=== PATIENT | female | born 1940 | race Caucasian/White ===

== ENCOUNTER 2019-05-02 04:11 | Observation (INO) ==
[2019-05-02 04:46] LABS: Basophils % 0.3 %; Eosinophils # 0.1 K/mcL (0.0-0.6); Eosinophils % 1.6 %; Hematocrit 41.8 % (35.3-44.9); Hemoglobin 13.4 g/dL (11.5-15.4); Immature Granulocytes % 0.3 % (0-4); Lymphocytes # 1.5 K/mcL (0.6-4.6); Lymphocytes % 19.3 %; Mean Corpuscular HGB Conc 32.1 g/dL (31.6-35.5); Mean Corpuscular Hemoglobin 29.1 pg (28.0-33.3); Mean Corpuscular Volume 90.9 fL (83.0-100.0); Mean Platelet Volume 10.2 fL (9.4-12.4); Monocytes # 0.5 K/mcL (0.0-1.3); Monocytes % 6.9 %; Neutrophils # 5.4 K/mcL (1.6-8.9); Platelet Count 170 K/mcL (140-400); Red Cell Distribution Width 13.8 % (11.5-14.5); Segmented Neutrophils % 71.6 %; White Blood Count 7.6 K/mcL (4.3-11.1)
[2019-05-02 05:03] LABS: Alanine Aminotransferase 17 Units/L (7-52); Albumin/Globulin Ratio 1.3 (1.1-2.2); Alkaline Phosphatase 69 Units/L (34-104); Aspartate Amino Transferase 22 Units/L (13-39); BUN/Creatinine Ratio 29 (6-26); Bilirubin,Direct 0.1 mg/dL (0.0-0.2); Bilirubin,Indirect 0.4 mg/dL (0.0-1.2); Bilirubin,Total 0.5 mg/dL (0.3-1.0); Blood Urea Nitrogen 25 mg/dL (8-23); Carbon Dioxide 27 mEq/L (23-29); Chloride 99 mEq/L (98-107); Glucose 164 mg/dL (70-105); Lipase 43 Units/L (11-82); Osmolality,Calculated 308 (280-300); Potassium 4.2 mEq/L (3.5-5.1); Sodium 145 mEq/L (136-145); eGFR For African Americans > 60 (> 60); eGFR For Non-African Americans > 60 (> 60)
--- NOTE | 2019-05-02 05:07 | Emergency Department Note ---
Disposition Clinical Impression: Small bowel obstruction Abdominal pain Qualifiers: Abdominal location: generalized Qualified Code(s): R10.84 - Generalized abdominal pain Disposition: Admitted As Inpatient Condition: Good Referrals: Jason Good MD [Primary Care Provider] - Forms: ED Satisfaction Letter, Work/School Release Time of Disposition: 06:00 Abdominal Pain HPI - General Chief Complaint: ED Abdominal Pain Stated Complaint: abd pain Time Seen by Provider: 05/02/19 04:22 Source: patient, EMS Nursing Notes Reviewed: Yes Vital Signs Reviewed: Yes - History of Present Illness Pt Subjective Complaint: abdominal pain Onset (ago): Just [employer]UDIT[employer] SUPERVIS[employer] Consistency: constant Location: diffuse Pain Scale: 0 Quality: fullness Radiation: none Migration to: no migration Improves with: rest Worsens with: nothing Associated symptoms: Reports: nausea. Denies: vomiting, fever, chills, dysuria Treatments prior to arrival: other (gasX) - Related Data Home Medications Medication Instructions Recorded Confirmed Calcium Citrate 1 tab PO DAILY 05/31/15 12/02/18 Centrum Silver Tablet 1 tab PO DAILY 05/31/15 12/02/18 Chromium Picolinate 1 tab PO DAILY 05/31/15 12/02/18 Fish Oil 500 mg Softgel 1,000 mg PO DAILY 05/31/15 12/02/18 Glucosamine Chondroitin Cap 1 tab PO DAILY 05/31/15 12/02/18 Magnesium 1 tab PO DAILY 05/31/15 12/02/18 Omeprazole 40 mg PO DAILY 05/31/15 12/02/18 Quinapril HCl 20 mg PO DAILY 05/31/15 12/02/18 Triamterene/HCTZ 37.5/25mg 1 tab PO DAILY 05/31/15 12/02/18 Vitamin C 1 tab PO DAILY 05/31/15 12/02/18 Vitamin D3 1 tab PO DAILY 05/31/15 12/02/18 Vitamin E 1 cap PO DAILY 05/31/15 12/02/18 Mometasone Furoate [Elocon] 15 gm TP PRN PRN 12/06/15 12/02/18 Aspirin [Lo-Dose Aspirin EC] 1 tab PO QDPC 12/04/16 12/02/18 Previous Rx's Medication Instructions Recorded Magnesium Oxide [Magnesium] 400 mg PO DAILY #30 tablet 05/31/15 Clotrimazole/Betamethasone Dip 30 gm TP BID #1 tub 12/04/17 [Lotrisone Cream] Ondansetron HCl [Zofran] 4 mg PO Q8HR PRN #12 tab 03/04/19 Allergies Allergy/AdvReac Type Severity Reaction Status Date / Time methocarbamol Allergy Rash Verified 12/02/18 10:36 [From Robaxisal] Amoxicillin AdvReac Rash Verified 12/02/18 10:36 aspirin [From Robaxisal] AdvReac Rash Verified 12/02/18 10:36 All systems ED: reviewed and negative except as stated. Review of Systems: As Per HPI Constitutional: Denies: fever Eyes: Denies: eye pain ENT ED: Denies: throat pain Cardiovascular: Denies: chest pain Respiratory: Denies: dyspnea Gastrointestinal: Reports: as per HPI. Denies: diarrhea Genitourinary: Denies: dysuria Musculoskeletal: Denies: back pain Integumentary: Denies: rash Neurological: Denies: weakness Endocrine: Denies: fatigue Hematological/Lymphatic: Denies: lymphadenopathy Abdominal Pain PMH - Past Medical History Medical history: Reports: cancer, hypertension Female Surgical History: Reports: Adenoidectomy, breast surgery, thyroidectomy, Tonsillectomy Psychiatric history: Reports: no psych history - Social History Smoking status: Former smoker Alcohol use: Reports: none Drug use: Reports: none Physical Exam - General Limitations: no limitations General appearance: alert, in no apparent distress - Head Head exam: atraumatic, normocephalic - Eye Eye exam: Present: EOMI - ENT ENT exam: mucous membranes moist - Neck Neck exam: Present: full ROM - Chest Chest inspection: Present: symmetric chest wall rise - Respiratory Respiratory exam: Present: normal lung sounds bilaterally. Absent: respiratory distress - Cardiovascular Cardiovascular exam: Present: regular rate, normal rhythm - Abdominal Exam Abdominal exam: Present: soft, tenderness, distention, hyperactive bowel sounds. Absent: guarding, rebound, tenderness at McBurney's Point, ascites - Extremities Exam Extremities exam: Present: normal inspection, full ROM, pedal edema - Back Exam Back exam: Present: full ROM - Neurological Exam Neurological exam: Present: alert - Psychiatric Psychiatric exam: Present: normal affect, normal mood - Skin Skin exam: Present: warm, dry, intact, normal color. Absent: rash, cyanosis, diaphoresis Course Course Narrative: 78-year-old with past medical history of breast cancer presents with abdominal pain. She describes some mild abdominal pain around 11:00, just prior to arrival her pain had worsened prompted her visit to the emergency department. It is accompanied with nausea. She describes not ever vomiting since eighth grade, but did describe a choking sensation after she had called squad. She describes normal bowel movements yesterday. She is not passing gas. She describes her pain as feeling full. She did have a similar episode approximately 2 months ago she was evaluated in the emergency department had a CT scan. At that time there was concern for partial small bowel obstruction, but ultimately she was discharged home to follow up with her primary care provider. She since followed up with surgery. She also had some abnormal findings on her spleen and was advised to follow-up for that as well for an MRI. She did follow up with her oncologist Dr. Romero who patient states his plan this MRI but she has not received yet. On examination, abdomen generalized tenderness, slightly distended, no peritonea l signs. Hyperactive bowel sounds. Lungs clear to auscultation. Mild BLE edema - Reevaluation(s) Reevaluation #1: Labs unremarkable. CT scan suggested a partial small bowel obstruction. Discussed with Dr. Elizabeth who also had face time with patient and agrees exam concerning for SBO. Will plan for surgical consult and likely admission. Time: 05:45 Reevaluation #2: Patient discussed with and accepted by hospitalist Dr. Peralta Time: 06:28 - Consultations Consultation #1: Surgery was paged and discussed patient with Dr. Sandra Garcia, who agreed to see patient. She advised admit to hospitalist, recommended NG tube, saline, nothing by mouth. Time: 05:56 Vital Signs Temperature 98.0 F 05/02/19 04:15 Pulse Rate 78 05/02/19 04:15 Respiratory Rate 16 05/02/19 04:15 Blood Pressure 109/73 05/02/19 04:15 O2 Sat by Pulse Oximetry 98 05/02/19 04:15 Temperature 98.0 F 05/02/19 04:15 Pulse Rate 77 05/02/19 06:15 Respiratory Rate 16 05/02/19 06:15 Blood Pressure 166/68 05/02/19 06:15 O2 Sat by Pulse Oximetry 99 05/02/19 06:15 Oxygen Delivery Oxygen Delivery Room Air Abdominal Pain - MDM Narrative Medical decision making narrative: Abdomen/Pelvis CT 05/02/19 04:24 IMPRESSION: 1. Findings are suggestive of a partial small bowel obstruction with the transition point in the right lower quadrant, similar to the prior study. The possibility of a Meckel's diverticulum is once again raised. 2. Colonic diverticulosis without scan evidence for diverticulitis. 3. Gallbladder sludge or gallstones without CT evidence for acute cholecystitis. 4. Gas in the bladder may represent cystitis if there has not been recent catheterization. D/ / Luis Prabhakar MD / Luis Prabhakar MD Interpreting Provider: Luis Prabhakar MD Laboratory Tests 05/02/19 05/02/19 04:25 04:25 WBC 7.6 RBC 4.60 Hgb 13.4 Hct 41.8 MCV 90.9 MCH 29.1 MCHC 32.1 RDW 13.8 Plt Count 170 MPV 10.2 Immature Gran % 0.3 Seg Neutrophils % 71.6 Lymphocytes % 19.3 Monocytes % 6.9 Eosinophils % 1.6 Basophils % 0.3 Neutrophils # 5.4 Lymphocytes # 1.5 Monocytes # 0.5 Eosinophils # 0.1 Basophils # 0.0 Sodium 145 Potassium 4.2 Chloride 99 Carbon Dioxide 27 BUN 25 H Creatinine 0.85 Est GFR ( Amer) > 60 Est GFR (Non-Af Amer) > 60 BUN/Creatinine Ratio 29 H Glucose 164 H Calculated Osmolality 308 H Calcium 10.0 Total Bilirubin 0.5 Direct Bilirubin 0.1 Indirect Bilirubin 0.4 AST 22 ALT 17 Alkaline Phosphatase 69 Serum Total Protein 7.0 Albumin 4.0 Globulin 3.0 Albumin/Globulin Ratio 1.3 Lipase 43 - Lab Data Lab results reviewed: Yes I reviewed the patient's lab results. Result diagrams: 05/02/19 04:25 05/02/19 04:25 Lab Results 05/02/19 05/02/19 Range/Units 04:25 04:25 WBC 7.6 (4.3-11.1) K/mcL RBC 4.60 (3.82-4.97) M/mcL Hgb 13.4 (11.5-15.4) g/dL Hct 41.8 (35.3-44.9) % MCV 90.9 (83.0-100.0) fL MCH 29.1 (28.0-33.3) pg MCHC 32.1 (31.6-35.5) g/dL RDW 13.8 (11.5-14.5) % Plt Count 170 (140-400) K/mcL MPV 10.2 (9.4-12.4) fL Immature Gran % 0.3 (0-4) % Seg Neutrophils % 71.6 % Lymphocytes % 19.3 % Monocytes % 6.9 % Eosinophils % 1.6 % Basophils % 0.3 % Neutrophils # 5.4 (1.6-8.9) K/mcL Lymphocytes # 1.5 (0.6-4.6) K/mcL Monocytes # 0.5 (0.0-1.3) K/mcL Eosinophils # 0.1 (0.0-0.6) K/mcL Basophils # 0.0 (0.0-0.2) K/mcL Sodium 145 (136-145) mEq/L Potassium 4.2 (3.5-5.1) mEq/L Chloride 99 (98-107) mEq/L Carbon Dioxide 27 (23-29) mEq/L BUN 25 H (8-23) mg/dL Creatinine 0.85 (0.60-1.20) mg/dL Est GFR ( Amer) > 60 (> 60) Est GFR (Non-Af Amer) > 60 (> 60) BUN/Creatinine Ratio 29 H (6-26) Glucose 164 H (70-105) mg/dL Calculated Osmolality 308 H (280-300) Calcium 10.0 (8.6-10.3) mg/dL Total Bilirubin 0.5 (0.3-1.0) mg/dL Direct Bilirubin 0.1 (0.0-0.2) mg/dL Indirect Bilirubin 0.4 (0.0-1.2) mg/dL AST 22 (13-39) Units/L ALT 17 (7-52) Units/L Alkaline Phosphatase 69 (34-104) Units/L Serum Total Protein 7.0 (6.4-8.9) g/dL Albumin 4.0 (3.5-5.7) g/dL Globulin 3.0 (2.4-3.5) g/dL Albumin/Globulin Ratio 1.3 (1.1-2.2) Lipase 43 (11-82) Units/L - Radiology Data Radiology results reviewed: Yes I reviewed the patient's radiology results. - EKG Data EKG attestation: Yes I reviewed and interpreted this EKG. EKG shows normal: sinus rhythm Rate: normal Rhythm: NSR [place]/QRS: normal Interpretation: no acute changes, unchanged when compared to prior tracing (date) (07/14/2011)
--- NOTE | 2019-05-02 05:52 | Emergency Department Note ---
Disposition Clinical Impression: Small bowel obstruction Abdominal pain Qualifiers: Abdominal location: generalized Qualified Code(s): R10.84 - Generalized abdominal pain Disposition: Admitted As Inpatient Condition: Good Time of Disposition: 06:00 General Adult HPI - General Chief complaint: ED Abdominal Pain Stated complaint: abd pain Time Seen by Provider: 05/02/19 04:22 Source: patient, EMS Limitations: no limitations Nursing Notes Reviewed: Yes Vital Signs Reviewed: Yes - History of Present Illness Pain Scale: 0 - Related Data Home Medications Medication Instructions Recorded Confirmed Calcium Citrate 1 tab PO DAILY 05/31/15 12/02/18 Centrum Silver Tablet 1 tab PO DAILY 05/31/15 12/02/18 Chromium Picolinate 1 tab PO DAILY 05/31/15 12/02/18 Fish Oil 500 mg Softgel 1,000 mg PO DAILY 05/31/15 12/02/18 Glucosamine Chondroitin Cap 1 tab PO DAILY 05/31/15 12/02/18 Magnesium 1 tab PO DAILY 05/31/15 12/02/18 Omeprazole 40 mg PO DAILY 05/31/15 12/02/18 Quinapril HCl 20 mg PO DAILY 05/31/15 12/02/18 Triamterene/HCTZ 37.5/25mg 1 tab PO DAILY 05/31/15 12/02/18 Vitamin C 1 tab PO DAILY 05/31/15 12/02/18 Vitamin D3 1 tab PO DAILY 05/31/15 12/02/18 Vitamin E 1 cap PO DAILY 05/31/15 12/02/18 Mometasone Furoate [Elocon] 15 gm TP PRN PRN 12/06/15 12/02/18 Aspirin [Lo-Dose Aspirin EC] 1 tab PO QDPC 12/04/16 12/02/18 Previous Rx's Medication Instructions Recorded Magnesium Oxide [Magnesium] 400 mg PO DAILY #30 tablet 05/31/15 Clotrimazole/Betamethasone Dip 30 gm TP BID #1 tub 12/04/17 [Lotrisone Cream] Ondansetron HCl [Zofran] 4 mg PO Q8HR PRN #12 tab 03/04/19 Allergies Allergy/AdvReac Type Severity Reaction Status Date / Time methocarbamol Allergy Rash Verified 12/02/18 10:36 [From Robaxisal] Amoxicillin AdvReac Rash Verified 12/02/18 10:36 aspirin [From Robaxisal] AdvReac Rash Verified 12/02/18 10:36 Past Medical History - Past Medical History Medical history: Reports: cancer, hypertension Psychiatric history: Reports: no psych history - Social History Smoking Status: Former smoker Smokeless Tobacco Status: No Alcohol use: Reports: none Drug use: Reports: none Physical Exam - General Limitations: no limitations General appearance: alert, in no apparent distress Course Vital Signs Temperature 98.0 F 05/02/19 04:15 Pulse Rate 78 05/02/19 04:15 Respiratory Rate 16 05/02/19 04:15 Blood Pressure 109/73 05/02/19 04:15 O2 Sat by Pulse Oximetry 98 05/02/19 04:15 Temperature 98.0 F 05/02/19 04:15 Pulse Rate 77 05/02/19 06:15 Respiratory Rate 16 05/02/19 06:15 Blood Pressure 166/68 05/02/19 06:15 O2 Sat by Pulse Oximetry 99 05/02/19 06:15 Oxygen Delivery Oxygen Delivery Room Air Medical Decision Making - Medical Records Medical records reviewed: Yes I reviewed the patient's medical records. - Lab Data Lab results reviewed: Yes I reviewed the patient's lab results. Result diagrams: 05/02/19 04:25 05/02/19 04:25 Lab Results 05/02/19 05/02/19 Range/Units 04:25 04:25 WBC 7.6 (4.3-11.1) K/mcL RBC 4.60 (3.82-4.97) M/mcL Hgb 13.4 (11.5-15.4) g/dL Hct 41.8 (35.3-44.9) % MCV 90.9 (83.0-100.0) fL MCH 29.1 (28.0-33.3) pg MCHC 32.1 (31.6-35.5) g/dL RDW 13.8 (11.5-14.5) % Plt Count 170 (140-400) K/mcL MPV 10.2 (9.4-12.4) fL Immature Gran % 0.3 (0-4) % Seg Neutrophils % 71.6 % Lymphocytes % 19.3 % Monocytes % 6.9 % Eosinophils % 1.6 % Basophils % 0.3 % Neutrophils # 5.4 (1.6-8.9) K/mcL Lymphocytes # 1.5 (0.6-4.6) K/mcL Monocytes # 0.5 (0.0-1.3) K/mcL Eosinophils # 0.1 (0.0-0.6) K/mcL Basophils # 0.0 (0.0-0.2) K/mcL Sodium 145 (136-145) mEq/L Potassium 4.2 (3.5-5.1) mEq/L Chloride 99 (98-107) mEq/L Carbon Dioxide 27 (23-29) mEq/L BUN 25 H (8-23) mg/dL Creatinine 0.85 (0.60-1.20) mg/dL Est GFR ( Amer) > 60 (> 60) Est GFR (Non-Af Amer) > 60 (> 60) BUN/Creatinine Ratio 29 H (6-26) Glucose 164 H (70-105) mg/dL Calculated Osmolality 308 H (280-300) Calcium 10.0 (8.6-10.3) mg/dL Total Bilirubin 0.5 (0.3-1.0) mg/dL Direct Bilirubin 0.1 (0.0-0.2) mg/dL Indirect Bilirubin 0.4 (0.0-1.2) mg/dL AST 22 (13-39) Units/L ALT 17 (7-52) Units/L Alkaline Phosphatase 69 (34-104) Units/L Serum Total Protein 7.0 (6.4-8.9) g/dL Albumin 4.0 (3.5-5.7) g/dL Globulin 3.0 (2.4-3.5) g/dL Albumin/Globulin Ratio 1.3 (1.1-2.2) Lipase 43 (11-82) Units/L - Radiology Data Radiology results reviewed: Yes I reviewed the patient's radiology results. Abdomen/Pelvis CT 05/02/19 04:24 IMPRESSION: 1. Findings are suggestive of a partial small bowel obstruction with the transition point in the right lower quadrant, similar to the prior study. The possibility of a Meckel's diverticulum is once again raised. 2. Colonic diverticulosis without scan evidence for diverticulitis. 3. Gallbladder sludge or gallstones without CT evidence for acute cholecystitis. 4. Gas in the bladder may represent cystitis if there has not been recent catheterization. D/ / Luis Prabhakar MD / Luis Prabhakar MD Interpreting Provider: Luis Prabhakar MD Attestation Statement - Attestation Attestation: I, Luciano Elizabeth MD, personally evaluated this patient and discussed their management with the midlevel provicer, PAC/PU[employer]. I reviewed the midlevel provider's note and agree with the documented findings, medical decision making, and plan of care. 78-year-old female presents to the emergency department by EMS with a complaint of diffuse abdominal pain which started about 11 PM tonight. No nausea or vomiting. Patient states she had a normal bowel movement yesterday. Shortly after the pain started tonight she had a very small bowel movement which was not normal for her. Since then she has not been passing any gas. She states her abdomen feels bloated and distended. The pain became more severe about 1 AM and she called EMS to come to the emergency department. On examination patient is a well-developed obese elderly female in no acute distress. She is alert and oriented 3. There is no cyanosis or diaphoresis. Breath sounds are clear and equal bilaterally. Heart regular rate and rhythm. Abdomen is soft with mild diffuse tenderness. Patient does have increased obstructive sounding bowel sounds. Labs reviewed. CT the abdomen and pelvis suggestive of partial small bowel obstruction with transition point in the right lower quadrant. The surgeon clay pigeon loader, Dr. Sandra Garcia, was consulted and recommended admission by the hospitalist with surgical consultation. The hospitalist, Dr. Peralta, was consulted and accepted admission of the patient.
[2019-05-02] MEDS ORDERED: Tetracaine/Benzocaine/Butamben 1 SPRAY AEROSOL MM ONE (06:06)
[2019-05-02] MEDS: 0.9 % Sodium Chloride 1,000 ML IVC SCH ×2 (06:28→14:51)
[2019-05-02] MEDS ORDERED: *HR* HYDROmorphone (PF) 1 MG/ML SYRINGE IVP ONE (06:36)
--- NOTE | 2019-05-02 06:57 | AcuteCare Surgery Consult Note ---
Date of Encounter: 05/02/19 Time of Encounter: 06:30 Assessment and Plan (1) Small bowel obstruction Current Visit: Yes Status: Acute History of Present Illness Reason for consult: abdominal pain Requesting physician: [facility] History of present illness: This 78 y/o female presents to [facility] c/o acute onset of severe abdominal pain. Pt reports the pain came on all of a sudden at 1:00 am this morning. It was severe and progressively worsening and she called the squad to bring her to the ED. She reports that after her CT was obtained she moved in her ED bed to pull the sheet over her feet and she felt a definite shifting in her abdomen and then she passed flatus and is currently pain free. She reports that at the onset of pain she felt nauseous but, did not vomit. She reports normal BM yesterday but, not much bowel activity in regard to BM or flatus since with the exception of the above reported episode. She reports a hx of being admitted to the hospital for this in the past in February. She also reports multiple similar but less severe episodes like this in the recent past that did not require hospitalization. Previous abd/pelvis CT suggested a narrowing of SB d/t enteritis vs Meckel's vs tumor. Subsequent SBFT was negative. ABD/Pelvis CT from today is suggestive of SBO with possible Meckel's. Denies CP, SOB or fever. Denies dysuria or hem aturia. 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, scolosis, Breast cancer, varicose veins Psychiatric history: no psych history - Past Surgical History Additional surgical history: sebaceous cyst removal to back and neck, partial thyroidectomy, T&A, Left brest lumpectomy, colonoscopy, D&C, Oral surgery - Social History Smoking Status: Former smoker Smokeless Tobacco Status: No Alcohol use: none Drug use: none Medications and Allergies Centrum Silver Tablet 1 tab PO DAILY 05/31/15 [History] Fish Oil 500 mg Softgel 1,000 mg PO DAILY 05/31/15 [History] Glucosamine Chondroitin Cap 1 tab PO DAILY 05/31/15 [History] Magnesium 1 tab PO DAILY 05/31/15 [History] Magnesium Oxide [Magnesium] 400 mg PO DAILY #30 tablet 05/31/15 [Rx] Omeprazole 40 mg PO DAILY 05/31/15 [History] Quinapril HCl 20 mg PO DAILY 05/31/15 [History] Triamterene/HCTZ 37.5/25mg 1 tab PO DAILY 05/31/15 [History] Vitamin C 1 tab PO DAILY 05/31/15 [History] Vitamin D3 1 tab PO DAILY 05/31/15 [History] Vitamin E 1 cap PO DAILY 05/31/15 [History] Mometasone Furoate [Elocon] 15 gm TP PRN PRN 12/06/15 [History] Aspirin [Lo-Dose Aspirin EC] 1 tab PO QDPC 12/04/16 [History] Clotrimazole/Betamethasone Dip [Lotrisone Cream] 30 gm TP BID #1 tub 12/04/17 [Rx] Ondansetron HCl [Zofran] 4 mg PO Q8HR PRN #12 tab 03/04/19 [Rx] Allergy/AdvReac Type Severity Reaction Status Date / Time methocarbamol Allergy Rash Verified 12/02/18 10:36 [From Robaxisal] Amoxicillin AdvReac Rash Verified 12/02/18 10:36 aspirin [From Robaxisal] AdvReac Rash Verified 12/02/18 10:36 Review of Systems All systems PM: The remainder of the systems were reviewed and are negative - Constitutional no anorexia, no chills, no fatigue, no headache(s), no malaise, no night sweats, no weakness - EENT Nose, mouth and throat: dry mouth, no dysphagia, no nasal congestion, no nasal discharge, no sinus pain, no sinus pressure, no sore throat - Cardiovascular no chest pain, no diaphoresis, no dyspnea, no edema - Respiratory no wheezing - Gastrointestinal abdominal pain, belching, bloating, constipation, cramping, nausea, no diarrhea, no vomiting - Genitourinary Genitourinary: no difficulty urinating, no dysuria, no flank pain, no urinary frequency - Musculoskeletal no back pain, no joint swelling, no limited range of motion, no neck pain - Neurological no confusion, no dizziness, no focal weakness, no headache(s), no weakness - Psychiatric no anxiety, no depression - Hematologic/Lymphatic no easy bleeding, no easy bruising General Surgery Exam Initial Vital Signs Temp Pulse Resp BP Pulse Ox 98.0 F 78 16 109/73 98 05/02/19 04:15 05/02/19 04:15 05/02/19 04:15 05/02/19 04:15 05/02/19 04:15 - General physical appearance well nourished, no distress, no pain, obese. negative: jaundice - Eyes PERRL, normal ocular movement. negative: icteric - ENT no congestion, dry mucosa. negative: nasal discharge - Neck no masses, trachea midline, no lymphadectomy, no venous distension - Respiratory normal respiratory effort, clear to auscultation - Cardiovascular Cardiovascular exam: Present: RRR. Absent: JVD - Abdomen Abdomen general surgery: Present: bowel sounds present, soft, non tender, d istended - Genitourinary Present: normal external genitalia - Integumentary Integumentary general surgery: Present: warm and dry - Neurologic Present: CN 2-12 grossly intact - Musculoskeletal Present: normal posture - Psychiatric Psychiatric general surgery: Present: A&Ox3, appropriate Exam Initial Vital Signs Temp Pulse Resp BP Pulse Ox 98.0 F 78 16 109/73 98 05/02/19 04:15 05/02/19 04:15 05/02/19 04:15 05/02/19 04:15 05/02/19 04:15 Results - Labs 05/02/19 04:25 05/02/19 04:25 Abnormal lab results BUN 25 mg/dL (8-23) H 05/02/19 04:25 BUN/Creatinine Ratio 29 (6-26) H 05/02/19 04:25 Glucose 164 mg/dL (70-105) H 05/02/19 04:25 Calculated Osmolality 308 (280-300) H 05/02/19 04:25 Diabetes panel 05/02/19 Range/Units 04:25 Sodium 145 (136-145) mEq/L Potassium 4.2 (3.5-5.1) mEq/L Chloride 99 (98-107) mEq/L Carbon Dioxide 27 (23-29) mEq/L BUN 25 H (8-23) mg/dL Creatinine 0.85 (0.60-1.20) mg/dL Glucose 164 H (70-105) mg/dL Calcium 10.0 (8.6-10.3) mg/dL AST 22 (13-39) Units/L ALT 17 (7-52) Units/L Alkaline Phosphatase 69 (34-104) Units/L Albumin 4.0 (3.5-5.7) g/dL Calcium panel 05/02/19 Range/Units 04:25 Calcium 10.0 (8.6-10.3) mg/dL Albumin 4.0 (3.5-5.7) g/dL Pituitary panel 05/02/19 Range/Units 04:25 Sodium 145 (136-145) mEq/L Potassium 4.2 (3.5-5.1) mEq/L Chloride 99 (98-107) mEq/L Carbon Dioxide 27 (23-29) mEq/L BUN 25 H (8-23) mg/dL Creatinine 0.85 (0.60-1.20) mg/dL Glucose 164 H (70-105) mg/dL Calcium 10.0 (8.6-10.3) mg/dL Adrenal panel 05/02/19 Range/Units 04:25 Sodium 145 (136-145) mEq/L Potassium 4.2 (3.5-5.1) mEq/L Chloride 99 (98-107) mEq/L Carbon Dioxide 27 (23-29) mEq/L BUN 25 H (8-23) mg/dL Creatinine 0.85 (0.60-1.20) mg/dL Glucose 164 H (70-105) mg/dL Calcium 10.0 (8.6-10.3) mg/dL Total Bilirubin 0.5 (0.3-1.0) mg/dL AST 22 (13-39) Units/L ALT 17 (7-52) Units/L Alkaline Phosphatase 69 (34-104) Units/L Albumin 4.0 (3.5-5.7) g/dL All other labs normal. - Imaging CT scan - abdomen: image reviewed (1. Findings are suggestive of a partial small bowel obstruction with the transition point in the right lower quadrant, similar to the prior study. The possibility of a Meckel's diverticulum is once again raised. 2. Colonic diverticulosis without scan evidence for diverticulitis. 3. Gallbladder sludge or gallstones without CT evidence for acute cholecystitis. 4. Gas in the bladder may represent cystitis if there has not been recent catheterization.) CT scan - pelvis: image reviewed Additional studies: Reviewed ABD/Pelvis CT CT from 02/2019 which revealed pSBO d/t enteritis vs. Meckel's vs. SB mass Reviewed SBFT which was negative Consult Discharge Plan - Plan Referrals: Jason Good MD [Primary Care Provider] -
[2019-05-02] MEDS ORDERED: Naloxone 0.4 MG/ML INJ IVP PRN (07:15)
[2019-05-02] MEDS ORDERED: *HR* FentaNYL (PF) 100 MCG/2 ML VIAL IVP PRN (07:17)
[2019-05-02] MEDS ORDERED: Ondansetron 4 MG/2 ML VIAL IVP PRN (07:17)
--- NOTE | 2019-05-02 07:23 | Internal Med History&Physical ---
Date of Encounter: 05/02/19 Time of Encounter: 07:19 Internal Medicine - H&P: HPI History of present illness: Ms. Jade is a 78 year old female with history of hypertension, breast cancer s/p lumpectomy, and partial SBO two months ago presents for abdominal pain and nausea without vomiting. Pain occurred overnight and quickly worsened. She denied any flatus since that time until being in the ED. She denies fevers/chills, diarrhea/constipation, melena, hematochezia. A CT done in the ED showed narrowed small bowel likely partial SBO vs possibly Meckel's diverticulum. These findings were seen prior are and being monitored as outpatient. Currently she states she is without pain. 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, scolosis, Breast cancer, varicose veins Psychiatric history: no psych history - Past Surgical History Additional surgical history: sebaceous cyst removal to back and neck, partial thyroidectomy, T&A, Left brest lumpectomy, colonoscopy, D&C, Oral surgery - Social History Smoking Status: Former smoker Smokeless Tobacco Status: No Alcohol use: none Drug use: none Internal Medicine - H&P: Meds Centrum Silver Tablet 1 tab PO DAILY 05/31/15 [History] Fish Oil 500 mg Softgel 1,000 mg PO DAILY 05/31/15 [History] Glucosamine Chondroitin Cap 1 tab PO DAILY 05/31/15 [History] Magnesium 1 tab PO DAILY 05/31/15 [History] Magnesium Oxide [Magnesium] 400 mg PO DAILY #30 tablet 05/31/15 [Rx] Omeprazole 40 mg PO 05/31/15 [History] Quinapril HCl 20 mg PO DAILY 05/31/15 [History] Triamterene/HCTZ 37.5/25mg 1 tab PO DAILY 05/31/15 [History] Vitamin C 1 tab PO DAILY 05/31/15 [History] Vitamin D3 1 tab PO DAILY 05/31/15 [History] Vitamin E 1 cap PO DAILY 05/31/15 [History] Mometasone Furoate [Elocon] 15 gm TP PRN PRN 12/06/15 [History] Aspirin [Lo-Dose Aspirin EC] 1 tab PO QDPC 12/04/16 [History] Clotrimazole/Betamethasone Dip [Lotrisone Cream] 30 gm TP BID #1 tub 12/04/17 [Rx] Ondansetron HCl [Zofran] 4 mg PO Q8HR PRN #12 tab 03/04/19 [Rx] Allergy/AdvReac Type Severity Reaction Status Date / Time methocarbamol Allergy Rash Verified 12/02/18 10:36 [From Robaxisal] Amoxicillin AdvReac Rash Verified 12/02/18 10:36 aspirin [From Robaxisal] AdvReac Rash Verified 12/02/18 10:36 All Systems PM: A 10-system review of systems was performed and is negative for pertinent findings except as documented above in the HPI. - Constitutional Vitals: Temp Pulse Resp BP Pulse Ox 98.0 F 77 16 166/68 99 05/02/19 04:15 05/02/19 06:15 05/02/19 06:15 05/02/19 06:15 05/02/19 06:15 General appearance: Present: A&O X 3 Exam: NG tube - Head Head exam: Present: atraumatic, normocephalic - Eye Eye exam: Present: PERRL, conjuntiva pink, sclera anicteric Pupils: Present: PERRL - Neck Neck exam general surgery: Present: supple, trachea midline. Absent: lymphadenopathy - Respiratory Respiratory exam: Present: CTAB. Absent: accessory muscle use, rales, rhonchi, wheezes - Cardiovascular Cardiovascular exam: Present: RRR, +S1, +S2. Absent: diastolic murmur, gallop, rubs, systolic murmur - GI/Abdominal GI/Abdominal exam: Present: distended, normal bowel sounds, soft, tenderness, no peritoneal signs. Absent: diminished bowel sounds, firm, guarding - Extremities Exam Extremities exam: Present: pedal edema, warm, radial pulses palpable and symmetrical. Absent: calf tenderness, cyanotic - Neurological Exam Neurological exam: Present: CN II-XII intact, oriented X3, no focal deficits. Absent: pronater drift, facial droop, speech deficit - Skin Skin exam: Present: dry, intact Internal Med - H&P Results - Labs CBC & Chem 7: 05/02/19 04:25 05/02/19 04:25 Labs: Short CBC 05/02/19 Range/Units 04:25 WBC 7.6 (4.3-11.1) K/mcL Hgb 13.4 (11.5-15.4) g/dL Hct 41.8 (35.3-44.9) % Plt Count 170 (140-400) K/mcL Neutrophils # 5.4 (1.6-8.9) K/mcL BMP 05/02/19 04:25 Sodium 145 Potassium 4.2 Chloride 99 Carbon Dioxide 27 BUN 25 H Creatinine 0.85 Glucose 164 H Calcium 10.0 Liver Function 05/02/19 Range/Units 04:25 Total Bilirubin 0.5 (0.3-1.0) mg/dL Direct Bilirubin 0.1 (0.0-0.2) mg/dL AST 22 (13-39) Units/L ALT 17 (7-52) Units/L Alkaline Phosphatase 69 (34-104) Units/L Albumin 4.0 (3.5-5.7) g/dL - Impressions ITS Impressions Abdomen/Pelvis CT 05/02/19 04:24 IMPRESSION: 1. Findings are suggestive of a partial small bowel obstruction with the transition point in the right lower quadrant, similar to the prior study. The possibility of a Meckel's diverticulum is once again raised. 2. Colonic diverticulosis without scan evidence for diverticulitis. 3. Gallbladder sludge or gallstones without CT evidence for acute cholecystitis. 4. Gas in the bladder may represent cystitis if there has not been recent catheterization. D/ / Luis Prabhakar MD / Luis Prabhakar MD Interpreting Provider: Luis Prabhakar MD X-Ray 05/02/19 06:18 IMPRESSION: The enteric tube tip is in the stomach though the proximal side hole remains in the esophagus. The tube should be advanced 5 cm. D/ / Luis Prabhakar MD / Luis Prabhakar MD Interpreting Provider: Luis Prabhakar MD - Assessment and Plan (1) Small bowel obstruction Current Visit: Yes Status: Acute Assessment and plan: As seen on CT abdomen/pelvis. CT showed findings are suggestive of a partial small bowel obstruction with transition point in RLQ, similar to prior study with a possibility of Meckel's diverticulum. Keep NPO NG tube inserted in ED, will monitor for improvement Symptomatic treatment for pain and nausea/vomiting. Surgery consulted, recommendations appreciated. (2) Breast CA Current Visit: No Status: Acute Qualifiers: Breast location: unspecified site of breast Estrogen receptor status: unspecified Patient sex: female Laterality: left Qualified Code(s): C50.912 - Malignant neoplasm of unspecified site of left female breast (3) Hypertension Current Visit: Yes Status: Acute Assessment and plan: Resume home medications once med rec done. Hydralazine IV prn. Qualifiers: Hypertension type: essential hypertension Qualified Code(s): I10 - E ssential (primary) hypertension (4) DVT prophylaxis Current Visit: Yes Status: Acute Assessment and plan: Lovenox 40 mg SQ - Time Spent With Patient Total time spent is greater than 50% in coordination of care (as documented) at patient's floor/unit and/or counseling patient:
[2019-05-02 07:33] LABS: Bilirubin,Urine Negative (Negative); Blood,Urine Negative (Negative); Clarity,Urine Clear (Clear); Color,Urine Yellow (Yellow); Glucose,Urine (UA) Normal (Normal); Ketones,Urine Negative (Negative); Leukocyte Esterase,Urine Negative (Negative); Nitrite,Urine Negative (Negative); PH,Urine 5.5 pH Units (5.0-8.0); Protein,Urine Negative (Neg-Trace); Specific Gravity,Urine 1.022 (1.010-1.025); Urobilinogen,Urine Normal (Normal)
[2019-05-02] MEDS: Chloraseptic Spray 177 ML BOTTLE MM PRN ×2 (09:09→13:43)
--- NOTE | 2019-05-02 11:13 | Event Note ---
Date of Encounter: 05/02/19 Time of Encounter: 11:09 Had long discussion with patient concerning her current and last hospitalization related to this pathology in the last two months. She then took the opportunity to say that this is worse than the other episodes of pain and ER visits related to this in the last 6 months. I explained that my concern was that this was an actual surgical issue and, if not addressed, would likely result in a repeat admission in 1-2 months. I explained the diagnostic exploration to be done robotically to the patient. I also explained the points at which I would elect to convert to an open exploration. The patient expressed understanding and wished to proceed with surgery today.
[2019-05-02] MEDS ORDERED: *HR* FentaNYL (PF) 100 MCG/2 ML VIAL ONE ×3 (18:44→21:29)
[2019-05-02] MEDS ORDERED: Lidocaine -MPF 2% 2 ML VIAL ONE ×2 (18:44→21:11)
[2019-05-02] MEDS ORDERED: *HR* Rocuronium Bromide 50 MG/5 ML VIAL ONE ×2 (18:44→21:38)
[2019-05-02] MEDS ORDERED: Lidocaine -MPF 4% 5 ML AMPUL ONE (18:44)
[2019-05-02] MEDS ORDERED: *HR* Succinylcholine 200 MG/10 ML VIAL IVP ONE ×2 (18:44→21:11)
[2019-05-02] MEDS ORDERED: *HR* Propofol 200 MG/20 ML VIAL IVP ONE ×3 (18:44→21:11)
--- NOTE | 2019-05-02 19:48 | Anesthesia Evaluation PreOp ---
Date of Encounter: 05/02/19 Time of Encounter: 19:50 - Past History Planned Operation: Robotic Diagnostic Lap/Possible Cardiac History: HTN, Hyperlipidemia Pulmonary History: Former smoker FURNITURE REFINISHER History: Denies Any Significant HX Other Medical History: Other (Breast Cancer/Lumpectomy/Radiation MO) Anesthesia History: No Prior Anesthetic Complications Alcohol Use: none Drug use: none Medications and Allergies Centrum Silver Tablet 1 tab PO DAILY 05/31/15 [History] Fish Oil 500 mg Softgel 1,000 mg PO DAILY 05/31/15 [History] Glucosamine Chondroitin Cap 1 tab PO DAILY 05/31/15 [History] Magnesium 1 tab PO DAILY 05/31/15 [History] Magnesium Oxide [Magnesium] 400 mg PO DAILY #30 tablet 05/31/15 [Rx] Omeprazole 40 mg PO 05/31/15 [History] Quinapril HCl 20 mg PO DAILY 05/31/15 [History] Triamterene/HCTZ 37.5/25mg 1 tab PO DAILY 05/31/15 [History] Vitamin C 1 tab PO DAILY 05/31/15 [History] Vitamin D3 1 tab PO DAILY 05/31/15 [History] Vitamin E 1 cap PO DAILY 05/31/15 [History] Mometasone Furoate [Elocon] 15 gm TP PRN PRN 12/06/15 [History] Aspirin [Lo-Dose Aspirin EC] 1 tab PO QDPC 12/04/16 [History] Clotrimazole/Betamethasone Dip [Lotrisone Cream] 30 gm TP BID #1 tub 12/04/17 [Rx] Ondansetron HCl [Zofran] 4 mg PO Q8HR PRN #12 tab 03/04/19 [Rx] Allergy/AdvReac Type Severity Reaction Status Date / Time methocarbamol Allergy Rash Verified 12/02/18 10:36 [From Robaxisal] Amoxicillin AdvReac Rash Verified 12/02/18 10:36 aspirin [From Robaxisal] AdvReac Rash Verified 12/02/18 10:36 - Meds/Allergy Pre-op Review Medications Reviewed: Yes Allergies Reviewed: Yes Beta Blockers on Current Med List: No Anesthesia Results - Labs 05/02/19 04:25 05/02/19 04:25 Anesthesia Exam O2 Sat Height 1.6 m Weight 113.6 kg Weight 108.862 kg O2 Sat by Pulse Oximetry 95 O2 Sat by Pulse Oximetry 92 O2 Sat by Pulse Oximetry 93 O2 Sat by Pulse Oximetry 99 O2 Sat by Pulse Oximetry 99 O2 Sat by Pulse Oximetry 98 Vital Signs Temp Pulse Resp BP Pulse Ox 98.0 F 78 16 109/73 98 05/02/19 04:15 05/02/19 04:15 05/02/19 04:15 05/02/19 04:05/02/19 04:15 - HEENT Pupil (Motor): Pupils equal, EOMI Mallampati: III Teeth: Edentulous Oral Opening: Less than or equal to 3 - FURNITURE REFINISHER LOC: Oriented FURNITURE REFINISHER Motor: Normal RUE, Normal LUE, Normal RLE, Normal LLE, Normal Face FURNITURE REFINISHER Sensory: Normal: RUE, LUE, RLE, LLE, Face - Cardiac Rhythm: Regular Murmur: None JVD: No Carotid Bruit: No - Pulmonary Breath Sounds: bilateral Clear Respiratory Effort: Symmetrical Anesthesia Assess/Plan ASA Score: 3 (HTN MO) Level of consciousness: Cooperative, Oriented Anesthetic Plan: General Autologous Blood: No Monitoring Plan: Standard Monitors Recovery Plan: PACU (Discussed GA, agrees to proceed)
[2019-05-02] MEDS ORDERED: Famotidine 20 MG/2 ML VIAL IVP ONE (19:52)
[2019-05-02] MEDS ORDERED: Acetaminophen IV 1,000 MG/100 ML INFUS..BTL IVPB ONE (19:52)
[2019-05-02] MEDS ORDERED: Morphine Sulfate 2 MG/ML SYRINGE IVP PRN (19:53)
[2019-05-02] MEDS ORDERED: Acetaminophen IV 1,000 MG/100 ML INFUS..BTL ONE (20:03)
[2019-05-02] MEDS ORDERED: Famotidine 20 MG/2 ML VIAL ONE (20:03)
[2019-05-02] MEDS ORDERED: EPHEDrine 50 MG/ML VIAL ONE (20:49)
[2019-05-02] MEDS ORDERED: Dexamethasone 4 MG/ML VIAL ONE ×2 (21:04→22:45)
[2019-05-02] MEDS ORDERED: Ondansetron 4 MG/2 ML VIAL ONE ×2 (21:11→22:45)
[2019-05-02] MEDS ORDERED: Ketorolac 30 MG/ML VIAL ONE (21:52)
[2019-05-02] MEDS ORDERED: Neostigmine Methylsulfate 3 MG/3 ML SYRINGE ONE (22:10)
--- NOTE | 2019-05-02 23:11 | Operative Note ---
Date of procedure: 05/02/19 Pre-op diagnosis: small bowel obstruction Post-op diagnosis: same Procedure: robotic diagnostic laparscopy robotic small bowel resection Implants: none Complications: none Anesthesia: GETA Local Anesthetics: 0.5% Sensorcaine HCL SubQ (cc) Surgeon: Kenny Richter Was there an ex assistant/program director present: Yes Lead Project Manager: Karime Canales Estimated blood loss (cc): 20 Specimen: small bowel, ileum Condition: stable Disposition: PACU Procedure in Detail: The patient was brought into the operating room suite and was placed in the supine position. Mechanical DVT prophylaxis was applied. A time-in was conducted. The patient underwent smooth induction of anesthesia. Preoperative antibiotics were given. The patient was prepped and draped in the usual fashion. A time-out was held identifying the correct patient, pathology, and procedure. Everyone was in agreement and we began the procedure. Incision to Dissection I started by creating a 12mm supraumbilical incision just off the midline to the left and entered via direct visualization with the visiport. I was then able to place addition ports (LUQ, RLQ and port just off the midline to the right, below the umbilicus. I then docked the robot in the usual fashion. I started by looking around the abdomen. There was no evidence of studding or any ascites to suggest possible malignancy. I then grasp the cecum and began running the bowel proximally. It should be stated that despite gentle traction I created a serosal tear near the area of interest. I quickly came upon a focal point of adhesion along the antimesenteric border of the small bowel. To this focal point were several loops of bowel. I continued running the bowel proximally, not noting any other abnormality. I then grasp the area of interest with laparoscopic mahad instrument, created a counter incision infraumbilically, entered the abdomen, and extracted the specimen. Mesenteric Window to Closure I then created proximal and distal mesenteric windows, stapled across the bowel with the NARESH stapler, and used the impact machine to ligate the mesentery. I then created a stapled side to side anatamosis in the standard fashion and closed the enterotomy with the TA stapler. I then performed lembert sutures on the staple line to take the tension off the staple line. i was satisfied with my anastamosis as it was wide and patent. I then returned the bowel contents into the abdomen and closed the fascia with 1 PDS in an interrupted figure of 8 fashion. It should be stated that her fascia was very tenuous and did not hold my sutures well. I was able to place ~8 sutures to decrease the overall tension along the incision. Again, her fascia was very tenuous. I then closed the deep dermal layer with interrupted vicryl and closed the skin incisions with the skin stapler. The patient tolerated the procedure well and was escorted to PACu in stable condition.
[2019-05-03] MEDS ORDERED: Ondansetron 4 MG/2 ML VIAL IVP PRN (00:20)
[2019-05-03] MEDS ORDERED: *HR* FentaNYL (PF) 100 MCG/2 ML VIAL IVP PRN (00:20)
[2019-05-03] MEDS ORDERED: Acetaminophen IV 1,000 MG/100 ML INFUS..BTL IVPB ONE (00:20)
[2019-05-03] MEDS ORDERED: Naloxone 0.4 MG/ML INJ IVP PRN (00:20)
--- NOTE | 2019-05-03 00:21 | Anesthesia Evaluation Post Op ---
Date of Encounter: 05/03/19 Time of Encounter: 00:25 - Vital Signs Vital Signs: Vital Signs/O2 Sat/Glucose, Most Current Temp Pulse Resp BP Pulse Ox 05/03/19 00:14 97.8 F 90 18 139/71 96 05/03/19 00:04 97.8 F 89 16 147/86 96 05/02/19 23:54 79 16 139/74 94 05/02/19 23:44 87 16 150/71 95 05/02/19 23:34 98.1 F 87 18 156/79 96 05/02/19 23:24 87 16 150/82 97 05/02/19 23:14 83 16 157/78 97 05/02/19 23:04 98.2 F 92 16 152/83 97 - Lungs Lungs: Clear Ascult./Percussion - Airway Airway: Non-obstructed - Cardiovascular Regular Rate - Mental Status Mental Status: Alert & Oriented, Answers Appropriately - Pain Pain Scale: 2 - Nausea Vomiting Nausea Vomiting: Not Present - Hydration Hydration: NPO - Discharge PostOp Status: Transfer Patient to floor
[2019-05-03] MEDS: 0.9 % Sodium Chloride 1,000 ML IVC SCH ×3 (01:08→18:39)
[2019-05-03] MEDS: Chloraseptic Spray 177 ML BOTTLE MM PRN ×2 (01:08→08:27)
[2019-05-03 02:22] LABS: Basophils % 0.2 %; Eosinophils % 0.1 %; Hematocrit 39.4 % (35.3-44.9); Hemoglobin 12.3 g/dL (11.5-15.4); Immature Granulocytes % 0.8 % (0-4); Lymphocytes # 0.5 K/mcL (0.6-4.6); Lymphocytes % 5.3 %; Mean Corpuscular HGB Conc 31.2 g/dL (31.6-35.5); Mean Corpuscular Hemoglobin 29.1 pg (28.0-33.3); Mean Corpuscular Volume 93.1 fL (83.0-100.0); Mean Platelet Volume 10.5 fL (9.4-12.4); Monocytes # 0.4 K/mcL (0.0-1.3); Neutrophils # 8.7 K/mcL (1.6-8.9); Platelet Count 145 K/mcL (140-400); Red Blood Count 4.23 M/mcL (3.82-4.97); Red Cell Distribution Width 13.8 % (11.5-14.5); Segmented Neutrophils % 89.6 %; White Blood Count 9.7 K/mcL (4.3-11.1)
[2019-05-03 02:36] LABS: Magnesium 1.7 mg/dL (1.6-2.6); Phosphorous 2.8 mg/dL (2.7-4.5)
[2019-05-03] MEDS: *HR* Enoxaparin 40 MG/0.4 ML SYRINGE SQ SCH (05:44)
[2019-05-03] MEDS ORDERED: *HR* Enoxaparin 40 MG/0.4 ML SYRINGE SQ SCH (06:00)
[2019-05-03] MEDS: levoFLOXacin 750 MG/150 ML 750 MG/150 ML BAG IVPB SCH (08:26)
[2019-05-03] MEDS: MetroNIDAZOLE 500 MG/100 ML 500 MG/100 ML BAG IVPB SCH ×3 (08:27→23:12)
[2019-05-03] MEDS ORDERED: Acetaminophen 325 MG TABLET PO PRN (08:46)
--- NOTE | 2019-05-03 09:51 | Internal Med Progress Note ---
Hospitalist Progress Note - Encounter Date of Encounter: 05/03/19 Time of Encounter: 09:51 - Subjective Interval History: Patient had robotic small bowel resection. She currently states that she is doing great but complains of some sore throat and pain on swallowing. She denies pain from surgical site, fever and chills. - Exam Vitals: Temp Pulse Resp BP Pulse Ox 36.6 C 79 16 104/66 95 05/03/19 07:03 05/03/19 07:03 05/03/19 07:03 05/03/19 07:03 05/03/19 07:03 Exam: GENERAL: Not in distress. Sitting on bed and looks cheeerful although she complains of painful swallowing HEENT: EOMI, PERRLA MOUTH and TROAT: moist mucosa, White firm mass in posterior midline oropharynx on an erythematous base (likely ulcer) NECK:No JVD, No lymph nodes. CHEST AND LUNGS: Normal breath sounds, no wheezes or crackles HEART: S1 and S2 normal, no murmurs ABDOMEN: Soft, mildly tender, no organomegaly SKIN: Normal color, no rashes, no lesions EXTREMITIES: No deformity, no edema, no tenderness, no joint swelling or clubbing NEUROLOGICAL: Normal cognition, normal motor and sensory exam. - Assessment and Plan (1) Small bowel obstruction Current Visit: Yes Status: Acute Assessment and Plan: Patient is postop day 1 of robotic small bowel resection She has no complaints Abdomen soft and mildly tender, hypoactive bowel sounds Continue IV Levaquin and Flagyl Awaiting pathology report (2) Breast CA Current Visit: No Status: Chronic (3) Hypertension Current Visit: Yes Status: Acute Assessment and Plan: On home meds. Hydralazine IV prn. (4) DVT prophylaxis Current Visit: Yes Status: Acute Assessment and Plan: Lovenox 40 mg SQ - Time Spent with Patient Total time spent is greater than 50% in coordination of care (as documented) at patient's floor/unit and/or counseling patient: Internal Medicine: Result - Labs CBC & Chem 7: 05/03/19 01:28 05/03/19 10:24 Labs: Short CBC 05/03/19 Range/Units 01:28 WBC 9.7 (4.3-11.1) K/mcL Hgb 12.3 (11.5-15.4) g/dL Hct 39.4 (35.3-44.9) % Plt Count 145 (140-400) K/mcL Neutrophils # 8.7 (1.6-8.9) K/mcL Consult Discharge Plan - Plan Referrals: Jason Good MD [Primary Care Provider] - (2) Breast CA Qualifiers: Breast location: unspecified site of breast Estrogen receptor status: unspecified Patient sex: female Laterality: left Qualified Code(s): C50.912 - Malignant neoplasm of unspecified site of left female breast (3) Hypertension Qualifiers: Hypertension type: essential hypertension Qualified Code(s): I10 - Essential (primary) hypertension
[2019-05-03] MEDS: Acetaminophen IV 1,000 MG/100 ML INFUS..BTL IVPB SCH ×3 (11:12→23:16)
[2019-05-03 11:23] LABS: BUN/Creatinine Ratio 24 (6-26); Blood Urea Nitrogen 18 mg/dL (8-23); Calcium 7.6 mg/dL (8.6-10.3); Carbon Dioxide 23 mEq/L (23-29); Chloride 108 mEq/L (98-107); Glucose 146 mg/dL (70-105); Osmolality,Calculated 291 (280-300); Potassium 3.6 mEq/L (3.5-5.1); Sodium 138 mEq/L (136-145); eGFR For African Americans > 60 (> 60); eGFR For Non-African Americans > 60 (> 60)
--- NOTE | 2019-05-03 13:35 | AcuteCareSurgery Progress Note ---
Date of Encounter: 05/03/19 Time of Encounter: 13:32 - Assessment and Plan (1) Small bowel obstruction Current Visit: Yes Status: Acute 78F POD #1 s/p robotic diagnostic laparosocpy with small bowel resection; pain tolerated, more pain at her throat; minimal drainage (none this morning); abd soft, but appropriately tender; CLD await return of bowel function cont IV abx, d/c on 05/04 activity as tolerated IS usage replace electrolytes await path results Subjective Patient reports: no new complaints, feels better, still having pain, pain is less, afebrile Objective Vital Signs - Last 8 Hours Temp Pulse Resp BP Pulse Ox 05/03/19 10:02 97.8 F 73 15 109/70 96 05/03/19 07:03 97.9 F 79 16 104/66 95 Intake and Output 05/02/19 05/03/19 05/03/19 23:59 07:59 15:59 Intake Total 0 / 1000 100 / 1100 1000 / 1100 Output Total 600 / 800 200 / 800 Balance - -500 / 300 800 / 300 Intake: IV Fluids 100 / 1100 1000 / 1100 0.9 % Sodium Chloride 1,000 ML 1000 / 1000 @ 125 mls/hr IVC .Q8H SHIN Rx#: [id number] Ofirmev 1,000 mg/100 ml 1,000 100 / 100 mg In 100 ml @ 400 mls/hr IVPB ONCE ONE Rx#:[id number] Oral 0 / 0 0 / 0 Output: Urine 0 / 0 600 / 800 200 / 800 Estimated Blood Loss Other: Meal NPO Percent of Meal Consumed 0% # Voids 1 0 # Bowel Movements 0 Blood Glucose* 110 110 - General physical appearance no distress - ENT Other (small ulcer at oropharynx) - Respiratory normal expansion, normal respiratory effort - Cardiovascular Cardiovascular exam: Present: RRR - Abdomen Abdomen: Present: soft, tender (mildly tender; ) - Incision Incision: Present: clean and dry, intact - Integumentary no rash - Neurologic CN 2-12 grossly intact - Labs 05/03/19 01:28 05/03/19 10:24 Diabetes panel 05/03/19 Range/Units 10:24 Sodium 138 (136-145) mEq/L Potassium 3.6 (3.5-5.1) mEq/L Chloride 108 H (98-107) mEq/L Carbon Dioxide 23 (23-29) mEq/L BUN 18 (8-23) mg/dL Creatinine 0.74 (0.60-1.20) mg/dL Glucose 146 H (70-105) mg/dL Calcium 7.6 L (8.6-10.3) mg/dL Calcium panel 05/03/19 05/03/19 Range/Units 01:28 10:24 Calcium 7.6 L (8.6-10.3) mg/dL Phosphorus 2.8 (2.7-4.5) mg/dL Pituitary panel 05/03/19 Range/Units 10:24 Sodium 138 (136-145) mEq/L Potassium 3.6 (3.5-5.1) mEq/L Chloride 108 H (98-107) mEq/L Carbon Dioxide 23 (23-29) mEq/L BUN 18 (8-23) mg/dL Creatinine 0.74 (0.60-1.20) mg/dL Glucose 146 H (70-105) mg/dL Calcium 7.6 L (8.6-10.3) mg/dL Adrenal panel 05/03/19 Range/Units 10:24 Sodium 138 (136-145) mEq/L Potassium 3.6 (3.5-5.1) mEq/L Chloride 108 H (98-107) mEq/L Carbon Dioxide 23 (23-29) mEq/L BUN 18 (8-23) mg/dL Creatinine 0.74 (0.60-1.20) mg/dL Glucose 146 H (70-105) mg/dL Calcium 7.6 L (8.6-10.3) mg/dL Consult Discharge Plan - Plan Referrals: Florentino,Jason Recinos MD [Primary Care Provider] -
--- NOTE | 2019-05-03 16:00 | ENT - Consult Note ---
Date of Encounter: 05/03/19 Time of Encounter: 15:59 Assessment and Plan (1) Acute sore throat Current Visit: Yes Status: Acute Patient with acute sore throat secondary to recent intubation. No mass or lesion was visualized on exam at the bedside or flexible laryngoscopy. Patient did have some thick mucoid secretions. I do recommend increasing hydration and discussed the patient will have a sore throat for her. Of multiple days after being intubated secondary to the nature of intubation and having a tube in that area and she also had an NG tube. No further intervention of this area by ENT. (2) Gingival and edentulous alveolar ridge lesions associated with trauma Current Visit: Yes Status: Acute Patient with lesion of the inferior gingiva head is likely related to trauma from her lower denture plate. Would recommend biopsy these lesions on an outpatient basis. Patient will larger lesion that is firm on the right lateral aspect of the gingiva. This is not ulcerated or bleeding. Again this is likely secondary to her denture and is likely a fibroma. Will have patient follow up as an outpatient for biopsy. Discussed to go to her dentist that made the dentures for her to have Jackie denture down in this area so it does not rub against the gingiva on this area to cause the lesion. History of Present Illness Consult date: 05/03/19 Reason for ENT Consult: other (Throat lesion, sore throat) Requesting physician: Indira Fernandez History of present illness: Patient is a 78-year-old female that was admitted for acute abdominal pain and was admitted after being brought to the emergency department via EMS. Patient subsequently underwent an exploratory laparotomy during her stay. Since that time patient had a sore throat. After being examined by the hospitalist was noted she had a lesion the posterior aspect of the throat in the midline. I was called for further evaluation as they were worried for malignancy. Patient with no significant smoking history. Patient smoked occasionally but quit approximately 40 years ago. Patient denies any hemoptysis or bleeding from the throat. Patient does state that since she has exploratory laparotomy her throat has been sore. Patient has been clearing her throat. She is also been using numbing spray and keeping her throat moist which has helped. 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, scolosis, Breast cancer, varicose veins, left breast cancer (lumpectomy + radiation) Psychiatric history: no psych history - Past Surgical History Surgical History: cancer surgery Additional surgical history: sebaceous cyst removal to back and neck, partial thyroidectomy, T&A, Left brest lumpectomy, colonoscopy, D&C, Oral surgery - Social History Smoking Status: Former smoker Smokeless Tobacco Status: No Alcohol use: none Drug use: none Medications and Allergies Centrum Silver Tablet 1 tab PO DAILY 05/31/15 [History] Fish Oil 500 mg Softgel 1,000 mg PO DAILY 05/31/15 [History] Glucosamine Chondroitin Cap 1 tab PO DAILY 05/31/15 [History] Magnesium 1 tab PO DAILY 05/31/15 [History] Magnesium Oxide [Magnesium] 400 mg PO DAILY #30 tablet 05/31/15 [Rx] Omeprazole 40 mg PO 05/31/15 [History] Quinapril HCl 20 mg PO DAILY 05/31/15 [History] Triamterene/HCTZ 37.5/25mg 1 tab PO DAILY 05/31/15 [History] Vitamin C 1 tab PO DAILY 05/31/15 [History] Vitamin D3 1 tab PO DAILY 05/31/15 [History] Vitamin E 1 cap PO DAILY 05/31/15 [History] Mometasone Furoate [Elocon] 15 gm TP PRN PRN 12/06/15 [History] Aspirin [Lo-Dose Aspirin EC] 1 tab PO QDPC 12/04/16 [History] Clotrimazole/Betamethasone Dip [Lotrisone Cream] 30 gm TP BID #1 tub 12/04/17 [Rx] Ondansetron HCl [Zofran] 4 mg PO Q8HR PRN #12 tab 03/04/19 [Rx] Allergy/AdvReac Type Severity Reaction Status Date / Time methocarbamol Allergy Rash Verified 12/02/18 10:36 [From Robaxisal] Amoxicillin AdvReac Rash Verified 12/02/18 10:36 aspirin [From Robaxisal] AdvReac Rash Verified 12/02/18 10:36 ENT - ROS - Constitutional Constitutional ROS: as per HPI - EENT Nose, mouth and throat: dry mouth, dysphagia, mouth lesions, sore throat, throat swelling, no dental pain, no disequilibrium, no dizziness, no hoarseness, no sinus pain, no sinus pressure, no tongue swelling - Respiratory no dyspnea, no hemoptysis, no wheezing, no stridor - Gastrointestinal Gastrointestinal: no nausea, no vomiting - Genitourinary Genitourinary ROS: no difficulty urinating, no dysuria - Musculoskeletal Musculoskeletal ROS: no muscle weakness, no neck pain, no numbness - Neurological Neurological ROS: no abnormal hearing, no abnormal speech, no disequilibrium, no headache(s) - Psychiatric Psychiatric general: no auditory hallucinations - Endocrine Endocrine: no heat intolerance, no palpitations ENT Exam Initial Vital Signs Temp Pulse Resp BP Pulse Ox 98.0 F 78 16 109/73 98 05/02/19 04:15 05/02/19 04:15 05/02/19 04:15 05/02/19 04:15 05/02/19 04:15 - General physical appearance well developed, well nourished, moderate pain, obese - Eyes PERRL, normal ocular movement - ENT normal pinna, normal nares, dry mucosa, atraumatic, normocephalic, CN 2-12 grossly intact, Other (Thick mucus in the posterior oropharynx, this is able to be cleared, bilateral tympanic membranes are normal without perforation, middle ear well aerated without effusion, patient is edentulous with upper and lower denture plate tongue is mobile midline there is a geographic tongue without ulceration, tonsils are surgically absent, no lesion or mass in the posterior oropharynx, fibroma against the lower gingiva bilaterally at the lateral aspect where the dentures rubbing, no ulceration of these lesions) - Neck no masses, no bruits, trachea midline - Respiratory normal expansion, normal respiratory effort - Integumentary no rash, no abnormal pigmentation - Neurologic CN 2-12 grossly intact, normal coordination - Musculoskeletal normal gait, normal posture - Psychiatric oriented to time, oriented to person, oriented to place, speech is normal - Additional Findings See procedure note for flexible scope findings. Exam Initial Vital Signs Temp Pulse Resp BP Pulse Ox 98.0 F 78 16 109/73 98 05/02/19 04:15 05/02/19 04:15 05/02/19 04:15 05/02/19 04:15 05/02/19 04:15 Results - Labs 05/03/19 01:28 05/03/19 10:24 Abnormal lab results MCHC 31.2 g/dL (31.6-35.5) L 05/03/19 01:28 Lymphocytes # 0.5 K/mcL (0.6-4.6) L 05/03/19 01:28 Chloride 108 mEq/L (98-107) H 05/03/19 10:24 BUN 25 mg/dL (8-23) H 05/02/19 04:25 BUN/Creatinine Ratio 29 (6-26) H 05/02/19 04:25 Glucose 146 mg/dL (70-105) H 05/03/19 10:24 POC Glucose 110 mg/dL (70-99) H 05/02/19 17:16 Calculated Osmolality 308 (280-300) H 05/02/19 04:25 Calcium 7.6 mg/dL (8.6-10.3) L 05/03/19 10:24 Diabetes panel 05/03/19 Range/Units 10:24 Sodium 138 (136-145) mEq/L Potassium 3.6 (3.5-5.1) mEq/L Chloride 108 H (98-107) mEq/L Carbon Dioxide 23 (23-29) mEq/L BUN 18 (8-23) mg/dL Creatinine 0.74 (0.60-1.20) mg/dL Glucose 146 H (70-105) mg/dL Calcium 7.6 L (8.6-10.3) mg/dL Calcium panel 05/03/19 05/03/19 Range/Units 01:28 10:24 Calcium 7.6 L (8.6-10.3) mg/dL Phosphorus 2.8 (2.7-4.5) mg/dL Pituitary panel 05/03/19 Range/Units 10:24 Sodium 138 (136-145) mEq/L Potassium 3.6 (3.5-5.1) mEq/L Chloride 108 H (98-107) mEq/L Carbon Dioxide 23 (23-29) mEq/L BUN 18 (8-23) mg/dL Creatinine 0.74 (0.60-1.20) mg/dL Glucose 146 H (70-105) mg/dL Calcium 7.6 L (8.6-10.3) mg/dL Adrenal panel 05/03/19 Range/Units 10:24 Sodium 138 (136-145) mEq/L Potassium 3.6 (3.5-5.1) mEq/L Chloride 108 H (98-107) mEq/L Carbon Dioxide 23 (23-29) mEq/L BUN 18 (8-23) mg/dL Creatinine 0.74 (0.60-1.20) mg/dL Glucose 146 H (70-105) mg/dL Calcium 7.6 L (8.6-10.3) mg/dL All other labs normal. Consult Discharge Plan - Plan Referrals: Jason Good MD [Primary Care Provider] -
--- NOTE | 2019-05-03 16:13 | ENT - Procedure Note ---
Date of procedure: 05/03/19 Pre-op diagnosis: Sore throat, oral lesion Post-op diagnosis: same Procedure: Flexible laryngoscopy: Procedure was explained to the patient at the bedside verbal consent was obtained. Bilateral nares are sprayed with a 50-50 mixture of oxymetazoline and topical lidocaine. Time was given to allow anesthesia as well as decongestion of the nasal airway. Flexible laryngoscope was then advanced into the right naris. Nasal mucosa was dry and atrophic with some thick mucoid secretions. Scope was further advanced, nasopharynx was within normal limits, tongue base was normal without mass or lesion, epiglottis was normal, piriform sinuses were open without mass or obstruction. True vocal cords had normal mobility. Good glottic opening with full AB duction of the vocal cords bilaterally. Subglottis showed no obstruction. False cords were slightly edematous. Arytenoids had very mild edematous mucosa. Scope was removed. Patient tolerated this procedure well. Overall assessment shows that she has very mild erythema and edema of the supraglottis most likely secondary to recent intubation and placement of a NG tube. No mass or lesion that was worrisome on examination. CPT: 81546 Laryngoscopy, flexible fiberoptic; diagnostic Was there an account management assistant present: No Condition: stable
[2019-05-04] MEDS: 0.9 % Sodium Chloride 1,000 ML IVC SCH (03:36)
[2019-05-04] MEDS: Acetaminophen IV 1,000 MG/100 ML INFUS..BTL IVPB SCH ×4 (05:39→23:07)
[2019-05-04] MEDS: *HR* Enoxaparin 40 MG/0.4 ML SYRINGE SQ SCH (05:42)
[2019-05-04] MEDS: D5% in 0.45% NACL w KCl 20 MEQ/1,000 ML MLS IVC SCH ×2 (05:53→23:16)
[2019-05-04 07:50] LABS: BUN/Creatinine Ratio 19 (6-26); Blood Urea Nitrogen 15 mg/dL (8-23); Calcium 8.3 mg/dL (8.6-10.3); Carbon Dioxide 23 mEq/L (23-29); Glucose 113 mg/dL (70-105); eGFR For African Americans > 60 (> 60); eGFR For Non-African Americans > 60 (> 60)
[2019-05-04 08:32] LABS: Basophils % 0.3 %; Eosinophils # 0.2 K/mcL (0.0-0.6); Eosinophils % 2.2 %; Hematocrit 34.8 % (35.3-44.9); Hemoglobin 11.3 g/dL (11.5-15.4); Immature Granulocytes % 0.9 % (0-4); Lymphocytes % 23.2 %; Mean Corpuscular HGB Conc 32.5 g/dL (31.6-35.5); Mean Corpuscular Hemoglobin 29.4 pg (28.0-33.3); Mean Corpuscular Volume 90.6 fL (83.0-100.0); Mean Platelet Volume 10.6 fL (9.4-12.4); Monocytes # 0.7 K/mcL (0.0-1.3); Monocytes % 8.3 %; Neutrophils # 5.7 K/mcL (1.6-8.9); Platelet Count 115 K/mcL (140-400); Red Blood Count 3.84 M/mcL (3.82-4.97); Red Cell Distribution Width 14.2 % (11.5-14.5); Segmented Neutrophils % 65.1 %; White Blood Count 8.7 K/mcL (4.3-11.1)
[2019-05-04] MEDS: MetroNIDAZOLE 500 MG/100 ML 500 MG/100 ML BAG IVPB SCH ×3 (08:34→23:11)
[2019-05-04] MEDS: levoFLOXacin 750 MG/150 ML 750 MG/150 ML BAG IVPB SCH (09:45)
[2019-05-04 09:49] LABS: Chloride 109 mEq/L (98-107); Osmolality,Calculated 290 (280-300); Potassium 3.7 mEq/L (3.5-5.1); Sodium 139 mEq/L (136-145)
--- NOTE | 2019-05-04 12:19 | Internal Med Progress Note ---
Hospitalist Progress Note - Encounter Date of Encounter: 05/04/19 Time of Encounter: 09:15 - Subjective Interval History: No acute events. She denies abdominal pain. She admits that she started passing some flatus but has not had a bowel movement yet - Exam Vitals: Temp Pulse Resp BP Pulse Ox 36.6 C 64 17 118/72 96 05/04/19 10:12 05/04/19 10:12 05/04/19 10:12 05/04/19 10:12 05/04/19 10:12 Exam: GENERAL: Not in distress, cheerful HEENT: EOMI, PERRLA MOUTH and TROAT: moist mucosa, NECK:No JVD, No lymph nodes. CHEST AND LUNGS: Normal breath sounds, no wheezes or crackles HEART: S1 and S2 normal, no murmurs ABDOMEN: Soft, mildly tender, no organomegaly SKIN: Normal color, no rashes, no lesions EXTREMITIES: No deformity, no edema, no tenderness, no joint swelling or clubbing NEUROLOGICAL: Normal cognition, normal motor and sensory exam. - Assessment and Plan (1) Small bowel obstruction Current Visit: Yes Status: Acute Assessment and Plan: Patient is postop day 2 of robotic small bowel resection She has no complaints Abdomen soft and mildly tender, hypoactive bowel sounds IV antibiotics will be stopped today Awaiting pathology report Gen. surgery following (2) Hypertension Current Visit: Yes Status: Chronic Assessment and Plan: On home meds. Hydralazine IV prn. (3) Breast CA Current Visit: No Status: Chronic (4) DVT prophylaxis Current Visit: Yes Status: Acute Assessment and Plan: Lovenox 40 mg SQ - Time Spent with Patient Total time spent is greater than 50% in coordination of care (as documented) at patient's floor/unit and/or counseling patient: Internal Medicine: Result - Labs CBC & Chem 7: 05/04/19 08:21 05/04/19 04:00 Labs: Short CBC 05/04/19 Range/Units 08:21 WBC 8.7 (4.3-11.1) K/mcL Hgb 11.3 L (11.5-15.4) g/dL Hct 34.8 L (35.3-44.9) % Plt Count 115 L (140-400) K/mcL Neutrophils # 5.7 (1.6-8.9) K/mcL BMP 05/04/19 04:00 Sodium 139 Potassium 3.7 Chloride 109 H Carbon Dioxide 23 BUN 15 Creatinine 0.78 Glucose 113 H Calcium 8.3 L Consult Discharge Plan - Plan Referrals: Florentino,Jason Recinos MD [Primary Care Provider] - (2) Hypertension Qualifiers: Hypertension type: essential hypertension Qualified Code(s): I10 - Essential (primary) hypertension (3) Breast CA Qualifiers: Breast location: unspecified site of breast Estrogen receptor status: unspecified Patient sex: female Laterality: left Qualified Code(s): C50.912 - Malignant neoplasm of unspecified site of left female breast
--- NOTE | 2019-05-04 13:04 | AcuteCareSurgery Progress Note ---
Date of Encounter: 05/04/19 Time of Encounter: 13:03 - Assessment and Plan (1) Small bowel obstruction Current Visit: Yes Status: Acute 78F POD #2 s/p robotic diagnostic laparosocpy with small bowel resection; pain tolerated, more pain at her throat; minimal drainage (none this morning); abd soft, but appropriately tender; now with flatus adv to FLD; soft diet for dinner if she tolerates FLD cont IV abx, d/c on 05/04 activity as tolerated IS usage replace electrolytes await path results Subjective Patient reports: no new complaints, feels better, still having pain, pain is less, tolerating liquids well, afebrile Objective Vital Signs - Last 8 Hours Temp Pulse Resp BP Pulse Ox 05/04/19 10:12 97.9 F 64 17 118/72 96 05/04/19 07:18 97.9 F 66 17 112/70 97 Intake and Output 05/03/19 05/04/19 05/04/19 23:59 07:59 15:59 Intake Total 1660 / 3480 1100 / 1690 590 / 1690 Output Total 1500 / 2950 850 / 850 Balance 160 / 530 250 / 840 590 / 840 Intake: IV Fluids 1300 / 2600 1100 / 1450 350 / 1450 0.9 % Sodium Chloride 1,000 ML 1000 / 2000 1000 / 1000 @ 125 mls/hr IVC .Q8H SHIN Rx#: [id number] Ofirmev 1,000 mg/100 ml 1,000 200 / 300 100 / 100 mg In 100 ml @ 400 mls/hr IVPB Q6HR SHIN Rx#:[id number] Flagyl Premix 500 MG/100 ML 500 100 / 200 100 / 200 100 / 200 mg In 100 ml @ 100 mls/hr IVPB Q8HR SHIN Rx#:[id number] Levaquin Premix 750mg/150 mL 150 / 150 750 mg In 150 ml @ 100 mls/hr IVPB DAILY SHIN Rx#:[id number] Oral 360 / 880 240 / 240 Output: Urine 1500 / 2950 850 / 850 Other: Meal Dinner Breakfast Percent of Meal Consumed 100% # Voids 1 1 Weight 119.8 kg Blood Glucose* 88 Patient Weight 05/04/19 23:59 Weight 119.8 kg - General physical appearance no distress - Respiratory normal expansion, normal respiratory effort - Cardiovascular Cardiovascular exam: Present: RRR - Abdomen Abdomen: Present: soft, tender (decreased tenderness) - Incision Incision: Present: clean and dry, intact - Integumentary no rash - Neurologic CN 2-12 grossly intact - Psychiatric oriented to time, oriented to person, oriented to place - Labs 05/04/19 08:21 05/04/19 04:00 Diabetes panel 05/04/19 Range/Units 04:00 Sodium 139 (136-145) mEq/L Potassium 3.7 (3.5-5.1) mEq/L Chloride 109 H (98-107) mEq/L Carbon Dioxide 23 (23-29) mEq/L BUN 15 (8-23) mg/dL Creatinine 0.78 (0.60-1.20) mg/dL Glucose 113 H (70-105) mg/dL Calcium 8.3 L (8.6-10.3) mg/dL Calcium panel 05/04/19 Range/Units 04:00 Calcium 8.3 L (8.6-10.3) mg/dL Pituitary panel 05/04/19 Range/Units 04:00 Sodium 139 (136-145) mEq/L Potassium 3.7 (3.5-5.1) mEq/L Chloride 109 H (98-107) mEq/L Carbon Dioxide 23 (23-29) mEq/L BUN 15 (8-23) mg/dL Creatinine 0.78 (0.60-1.20) mg/dL Glucose 113 H (70-105) mg/dL Calcium 8.3 L (8.6-10.3) mg/dL Adrenal panel 05/04/19 Range/Units 04:00 Sodium 139 (136-145) mEq/L Potassium 3.7 (3.5-5.1) mEq/L Chloride 109 H (98-107) mEq/L Carbon Dioxide 23 (23-29) mEq/L BUN 15 (8-23) mg/dL Creatinine 0.78 (0.60-1.20) mg/dL Glucose 113 H (70-105) mg/dL Calcium 8.3 L (8.6-10.3) mg/dL Consult Discharge Plan - Plan Referrals: Florentino,Jason Recinos MD [Primary Care Provider] -
[2019-05-05] MEDS: *HR* Enoxaparin 40 MG/0.4 ML SYRINGE SQ SCH (06:05)
[2019-05-05] MEDS: Acetaminophen IV 1,000 MG/100 ML INFUS..BTL IVPB SCH (06:05)
[2019-05-05 06:29] LABS: Basophils % 0.3 %; Eosinophils # 0.2 K/mcL (0.0-0.6); Eosinophils % 2.5 %; Hematocrit 35.6 % (35.3-44.9); Immature Granulocytes % 0.3 % (0-4); Lymphocytes # 1.6 K/mcL (0.6-4.6); Lymphocytes % 24.6 %; Mean Corpuscular HGB Conc 30.9 g/dL (31.6-35.5); Mean Corpuscular Hemoglobin 29.3 pg (28.0-33.3); Mean Corpuscular Volume 94.9 fL (83.0-100.0); Mean Platelet Volume 10.7 fL (9.4-12.4); Monocytes # 0.6 K/mcL (0.0-1.3); Monocytes % 9.6 %; Platelet Count 122 K/mcL (140-400); Red Blood Count 3.75 M/mcL (3.82-4.97); Red Cell Distribution Width 13.9 % (11.5-14.5); Segmented Neutrophils % 62.7 %; White Blood Count 6.3 K/mcL (4.3-11.1)
[2019-05-05 06:52] LABS: BUN/Creatinine Ratio 12 (6-26); Blood Urea Nitrogen 8 mg/dL (8-23); Calcium 8.4 mg/dL (8.6-10.3); Carbon Dioxide 24 mEq/L (23-29); Chloride 108 mEq/L (98-107); Glucose 126 mg/dL (70-105); Osmolality,Calculated 294 (280-300); Potassium 3.7 mEq/L (3.5-5.1); Sodium 142 mEq/L (136-145); eGFR For African Americans > 60 (> 60); eGFR For Non-African Americans > 60 (> 60)
[2019-05-05] MEDS ORDERED: Ibuprofen 800 MG TABLET PO PRN (08:29)
[2019-05-05] MEDS ORDERED: *HR* OxyCODONE/APAP 5/325 TABLET PO PRN (08:30)
--- NOTE | 2019-05-05 08:33 | AcuteCareSurgery Progress Note ---
<EvensYaz Rachel - Last Filed: 05/05/19 08:31> Date of Encounter: 05/05/19 Time of Encounter: 07:30 - Assessment and Plan (1) Small bowel obstruction Current Visit: Yes Status: Acute Date of procedure: 05/02/19 Pre-op diagnosis: small bowel obstruction Post-op diagnosis: same Procedure: robotic diagnostic laparscopy robotic small bowel resection Implants: none Complications: none Surgeon: Kenny Richter POD #3 as above. Pathology remains pending at this time. VSS, afebrile, states pain is controlled. We will advance her diet and she is ok to d/c after lunch if she tolerates diet. f/u as directed. d/c instructions placed. Subjective Patient reports: no new complaints, tolerating liquids well, voiding w/o diffic ulty, flatus, bowel movement, afebrile Objective Vital Signs - Last 8 Hours Temp Pulse Resp BP Pulse Ox 05/05/19 06:35 98.2 F 62 16 141/68 94 05/05/19 03:18 97.8 F 75 16 104/61 94 Intake and Output 05/04/19 05/05/19 05/05/19 23:59 07:59 15:59 Intake Total 1300 / 3930 0 / 0 Output Total 1250 / 3500 900 / 900 Balance 50 / 430 -900 / -900 Intake: IV Fluids 1300 / 2850 KCl 20mEq IN D5%-0.45 NACL 20 1000 / 1000 meq In 1,000 ml @ 75 mls/hr IVC .[id number] SHIN Rx#:[id number] Ofirmev 1,000 mg/100 ml 1,000 200 / 400 mg In 100 ml @ 400 mls/hr IVPB Q6HR SHIN Rx#:[id number] Flagyl Premix 500 MG/100 ML 500 100 / 300 mg In 100 ml @ 100 mls/hr IVPB Q8HR SHIN Rx#:[id number] Oral 0 / 0 Output: Urine 1250 / 3500 900 / 900 Other: Stool Size Moderate Stool Consistency loose Stool Color Brown # Bowel Movements 1 Weight 118.7 kg Patient Weight 05/05/19 23:59 Weight 118.7 kg - General physical appearance well nourished, no distress - Eyes normal ocular movement - ENT dry mucosa, atraumatic - Neck Neck exam: trachea midline - Respiratory normal expansion, normal respiratory effort - Abdomen Abdomen: Present: bowel sounds present, soft, tender (expected postopeartive) - Incision Incision: Present: clean and dry, intact - Integumentary no rash - Neurologic normal sensation - Musculoskeletal normal posture - Psychiatric oriented to time, oriented to person, oriented to place - Labs 05/05/19 05:49 05/05/19 05:49 Diabetes panel 05/04/19 05/05/19 Range/Units 04:00 05:49 Sodium 139 142 (136-145) mEq/L Potassium 3.7 3.7 (3.5-5.1) mEq/L Chloride 109 H 108 H (98-107) mEq/L Carbon Dioxide 24 (23-29) mEq/L BUN 8 (8-23) mg/dL Creatinine 0.68 (0.60-1.20) mg/dL Glucose 126 H (70-105) mg/dL Calcium 8.4 L (8.6-10.3) mg/dL Calcium panel 05/05/19 Range/Units 05:49 Calcium 8.4 L (8.6-10.3) mg/dL Pituitary panel 05/04/19 05/05/19 Range/Units 04:00 05:49 Sodium 139 142 (136-145) mEq/L Potassium 3.7 3.7 (3.5-5.1) mEq/L Chloride 109 H 108 H (98-107) mEq/L Carbon Dioxide 24 (23-29) mEq/L BUN 8 (8-23) mg/dL Creatinine 0.68 (0.60-1.20) mg/dL Glucose 126 H (70-105) mg/dL Calcium 8.4 L (8.6-10.3) mg/dL Adrenal panel 05/04/19 05/05/19 Range/Units 04:00 05:49 Sodium 139 142 (136-145) mEq/L Potassium 3.7 3.7 (3.5-5.1) mEq/L Chloride 109 H 108 H (98-107) mEq/L Carbon Dioxide 24 (23-29) mEq/L BUN 8 (8-23) mg/dL Creatinine 0.68 (0.60-1.20) mg/dL Glucose 126 H (70-105) mg/dL Calcium 8.4 L (8.6-10.3) mg/dL Consult Discharge Plan - Plan Instructions: Bowel Resection (DC) Additional Instructions: General Surgical Discharge Instructions 1. No pushing, pulling, or lifting greater than 15 lbs for 4 weeks. 2. You may remove your dressings and shower beginning today, but no tub baths, soaking, or swimming for 2 weeks. 3. No driving for two weeks unless otherwise specified and then you may resume driving when you are off narcotics and are safe to react in a car. 4. Take ibuprofen every 8 hours for discomfort. If this does not relieve discomfort, you may take the as needed Percocet. Eat a small snack with pain medication as this will help reduce the risk of nausea. Take narcotics as directed. Do not take more narcotics then directed and do not share your narcotics with any other person. Do not drink alcohol while on narcotics. You can take the Zofran/ondansetron if needed for nausea or with a dose of narcotics to prevent nausea. 5. Take stool softeners (Colace) or a water based laxative (Miralax) while taking narcotics. You may hold for loose stools. 6. Report any fevers greater than 100.5F, increase abdominal discomfort, drainage that looks like pus, increased redness or pain at the surgical site, or any vomiting. 7. Report any pain in the calves, shortness of breath, or rapid heartbeat. 8. Follow-up in the office as directed. 9. If you were prescribed antibiotics, do not stop them without talking to your provider. Referrals: Yaz Horner CNP [Advanced Practice Nurse] - 05/20/19 2:15 pm Prescriptions: Docusate Sodium [Colace] 100 mg PO BID PRN #30 capsule PRN Reason: Contstipation Ibuprofen 800 mg PO Q8H PRN #30 tablet PRN Reason: Postsurgical pain Polyethylene Glycol 3350 [MiraLAX Powder Bulk 17.9 Oz] 1 scoop PO DAILY 30 Days #510 gm OxyCODONE/APAP 5/325 [Percocet 5/325 MG] 1 each PO Q6HR PRN 7 Days #28 tablet PRN Reason: Pain Ondansetron HCl [Zofran] 4 mg PO Q4HR PRN #30 tab PRN Reason: Nausea <Esequiel Cherry - Last Filed: 05/05/19 09:21> Date of Encounter: 05/05/19 - Assessment and Plan (1) Small bowel obstruction Current Visit: Yes Status: Acute Objective Vital Signs - Last 8 Hours Temp Pulse Resp BP Pulse Ox 05/05/19 06:35 98.2 F 62 16 141/68 94 05/05/19 03:18 97.8 F 75 16 104/61 94 Intake and Output 05/04/19 05/05/19 05/05/19 23:59 07:59 15:59 Intake Total 1300 / 3930 0 / 0 Output Total 1250 / 3500 900 / 900 Balance 50 / 430 -900 / -900 Intake: IV Fluids 1300 / 2850 KCl 20mEq IN D5%-0.45 NACL 20 1000 / 1000 meq In 1,000 ml @ 75 mls/hr IVC .[id number] SH[facility] Rx#:[id number] Ofirmev 1,000 mg/100 ml 1,000 200 / 400 mg In 100 ml @ 400 mls/hr IVPB Q6HR SHIN Rx#:[id number] Flagyl Premix 500 MG/100 ML 500 100 / 300 mg In 100 ml @ 100 mls/hr IVPB Q8HR SHIN Rx#:[id number] Oral 0 / 0 Output: Urine 1250 / 3500 900 / 900 Other: Stool Size Moderate Stool Consistency loose Stool Color Brown # Bowel Movements 1 Weight 118.7 kg Patient Weight 05/05/19 23:59 Weight 118.7 kg - Labs 05/05/19 05:49 05/05/19 05:49 Diabetes panel 05/04/19 05/05/19 Range/Units 04:00 05:49 Sodium 139 142 (136-145) mEq/L Potassium 3.7 3.7 (3.5-5.1) mEq/L Chloride 109 H 108 H (98-107) mEq/L Carbon Dioxide 24 (23-29) mEq/L BUN 8 (8-23) mg/dL Creatinine 0.68 (0.60-1.20) mg/dL Glucose 126 H (70-105) mg/dL Calcium 8.4 L (8.6-10.3) mg/dL Calcium panel 05/05/19 Range/Units 05:49 Calcium 8.4 L (8.6-10.3) mg/dL Pituitary panel 05/04/19 05/05/19 Range/Units 04:00 05:49 Sodium 139 142 (136-145) mEq/L Potassium 3.7 3.7 (3.5-5.1) mEq/L Chloride 109 H 108 H (98-107) mEq/L Carbon Dioxide 24 (23-29) mEq/L BUN 8 (8-23) mg/dL Creatinine 0.68 (0.60-1.20) mg/dL Glucose 126 H (70-105) mg/dL Calcium 8.4 L (8.6-10.3) mg/dL Adrenal panel 05/04/19 05/05/19 Range/Units 04:00 05:49 Sodium 139 142 (136-145) mEq/L Potassium 3.7 3.7 (3.5-5.1) mEq/L Chloride 109 H 108 H (98-107) mEq/L Carbon Dioxide 24 (23-29) mEq/L BUN 8 (8-23) mg/dL Creatinine 0.68 (0.60-1.20) mg/dL Glucose 126 H (70-105) mg/dL Calcium 8.4 L (8.6-10.3) mg/dL - Attending Attestation I examined this patient and my medical decision-making was reviewed with the COAL [employer]. I agree with the documented findings, disposition and treatment plan as described below. Pt was admitted for severe, complex LLE laceration, She was taken to OR for surgical repair and skin graft of LLE wound. Her hospital course was complicated with UTI which she was tx with IV abx. Her condition now is satisfactory for DC to ECF where she will continue skilled care of her complex LLE wound and skin graft.
[2019-05-05] MEDS: 0.9 % Sodium Chloride 1,000 ML IVC SCH (09:46)
[2019-05-05] MEDS: MetroNIDAZOLE 500 MG/100 ML 500 MG/100 ML BAG IVPB SCH (09:47)
--- NOTE | 2019-05-05 10:30 | Internal Med Progress Note ---
Hospitalist Progress Note - Encounter Date of Encounter: 05/05/19 Time of Encounter: 10:30 - Exam Vitals: Temp Pulse Resp BP Pulse Ox 98.8 F 72 16 136/80 97 05/05/19 10:10 05/05/19 10:10 05/05/19 10:10 05/05/19 10:10 05/05/19 10:10 - Assessment and Plan (1) Breast CA Current Visit: No Status: Chronic (2) Small bowel obstruction Current Visit: Yes Status: Acute (3) Hypertension Current Visit: Yes Status: Chronic (4) DVT prophylaxis Current Visit: Yes Status: Acute - Time Spent with Patient Total time spent is greater than 50% in coordination of care (as documented) at patient's floor/unit and/or counseling patient: Internal Medicine: Result - Labs CBC & Chem 7: 05/05/19 05:49 05/05/19 05:49 Labs: Short CBC 05/05/19 Range/Units 05:49 WBC 6.3 (4.3-11.1) K/mcL Hgb 11.0 L (11.5-15.4) g/dL Hct 35.6 (35.3-44.9) % Plt Count 122 L (140-400) K/mcL Neutrophils # 4.0 (1.6-8.9) K/mcL BMP 05/05/19 05:49 Sodium 142 Potassium 3.7 Chloride 108 H Carbon Dioxide 24 BUN 8 Creatinine 0.68 Glucose 126 H Calcium 8.4 L Consult Discharge Plan - Plan Instructions: Bowel Resection (DC) Additional Instructions: General Surgical Discharge Instructions 1. No pushing, pulling, or lifting greater than 15 lbs for 4 weeks. 2. You may remove your dressings and shower beginning today, but no tub baths, soaking, or swimming for 2 weeks. 3. No driving for two weeks unless otherwise specified and then you may resume driving when you are off narcotics and are safe to react in a car. 4. Take ibuprofen every 8 hours for discomfort. If this does not relieve discomfort, you may take the as needed Percocet. Eat a small snack with pain medication as this will help reduce the risk of nausea. Take narcotics as directed. Do not take more narcotics then directed and do not share your narcotics with any other person. Do not drink alcohol while on narcotics. You can take the Zofran/ondansetron if needed for nausea or with a dose of narcotics to prevent nausea. 5. Take stool softeners (Colace) or a water based laxative (Miralax) while taking narcotics. You may hold for loose stools. 6. Report any fevers greater than 100.5F, increase abdominal discomfort, drainage that looks like pus, increased redness or pain at the surgical site, or any vomiting. 7. Report any pain in the calves, shortness of breath, or rapid heartbeat. 8. Follow-up in the office as directed. 9. If you were prescribed antibiotics, do not stop them without talking to your provider. Referrals: Yaz Horner CNP [Advanced Practice Nurse] - 05/20/19 2:15 pm Prescriptions: Docusate Sodium [Colace] 100 mg PO BID PRN #30 capsule PRN Reason: Contstipation Ibuprofen 800 mg PO Q8H PRN #30 tablet PRN Reason: Postsurgical pain Polyethylene Glycol 3350 [MiraLAX Powder Bulk 17.9 Oz] 1 scoop PO DAILY 30 Days #510 gm OxyCODONE/APAP 5/325 [Percocet 5/325 MG] 1 each PO Q6HR PRN 7 Days #28 tablet PRN Reason: Pain Ondansetron HCl [Zofran] 4 mg PO Q4HR PRN #30 tab PRN Reason: Nausea (1) Breast CA Qualifiers: Breast location: unspecified site of breast Estrogen receptor status: unspecified Patient sex: female Laterality: left Qualified Code(s): C50.912 - Malignant neoplasm of unspecified site of left female breast (3) Hypertension Qualifiers: Hypertension type: essential hypertension Qualified Code(s): I10 - Essential (primary) hypertension
[2019-05-05 14:45] VITALS: BP 133/81
--- NOTE | 2019-05-05 14:59 | Discharge Summary ---
- NOTES TO OUTPATIENT PROVIDER Notes to Outpatient Provider: Patient will need follow-up with surgery in 1-2 weeks or as advised. Orders not resulted at time of discharge: Pending orders 05/02/19 22:57 Surgical Pathology [PTH] Routine 05/06/19 04:00 Basic Metabolic Panel AM 0400 Complete Blood Count [HEME] AM 0400 Date of Encounter: 05/05/19 Time of Encounter: 14:57 - Discharge Diagnosis (1) Breast CA Priority: Secondary Status: Chronic Qualifiers: Breast location: unspecified site of breast Estrogen receptor status: unspecified Patient sex: female Laterality: left Qualified Code(s): C50.912 - Malignant neoplasm of unspecified site of left female breast (2) Small bowel obstruction Priority: Primary Status: Acute (3) Hypertension Priority: Secondary Status: Chronic Qualifiers: Hypertension type: essential hypertension Qualified Code(s): I10 - Essential (primary) hypertension (4) DVT prophylaxis Priority: Secondary Status: Acute Hospital course: Ms. Jade is a 78 year old female with past medical history of breast cancer status post lumpectomy, hypertension, partial small bowel obstruction came with complaint of nausea and vomiting. Patient had a CT abdomen done in the ER which showed a likely small bowel obstruction versus Meckel's diverticulum. She was started on empiric antibiotics. Patient had surgical evaluation and underwent robotic diagnostic laparoscopy and small bowel resection. Patient has some sore throat complain after surgery for which ENT was consulted however they did not recommend any further recommendation after nasopharyngeal examination. Patient was doing well and tolerated diet. Antibiotics were stopped. She was stable to be home to follow with PCP and surgery as outpatient. Discharge discussed with: patient, nurse, social work, lactation consultant - Time Spent with Patient Total time spent providing and/or coordinating discharge services: Time spent: Greater than 30 minutes (35) - Discharge Medications Prescriptions: New Docusate Sodium [Colace] 100 mg PO BID PRN #30 capsule PRN Reason: Contstipation Ibuprofen 800 mg PO Q8H PRN #30 tablet PRN Reason: Postsurgical pain Polyethylene Glycol 3350 [MiraLAX Powder Bulk 17.9 Oz] 1 scoop PO DAILY 30 Days #510 gm OxyCODONE/APAP 5/325 [Percocet 5/325 MG] 1 each PO Q6HR PRN 7 Days #28 tablet PRN Reason: Pain Ondansetron HCl [Zofran] 4 mg PO Q4HR PRN #30 tab PRN Reason: Nausea Continued Vitamin E (Dl,Tocopheryl Acet) [Vitamin E] 400 unit PO DAILY Cholecalciferol (Vitamin D3) [Vitamin D3] 1,000 unit PO DAILY Ascorbic Acid [Vitamin C] 500 mg PO DAILY Triamterene/Hydrochlorothiazid [Dyazide 37.5-25 Capsule] 1 each PO DAILY Quinapril HCl [Accupril] 20 mg PO DAILY Omeprazole [PriLOSEC] 40 mg PO DAILY Magnesium Oxide [Mgo] 400 mg PO DAILY Gluc HCl/Csa/Collagen/Hyalur A [Glucosamine Chondroitin Cap] 1 each PO DAILY Orient-3/Dha/Epa/Fish Oil [Fish Oil 1,000 mg Softgel] 1 each PO DAILY Multivit-Min/FA/Lycopen/Lutein [Centrum Silver Tablet] 1 each PO DAILY Aspirin [Lo-Dose Aspirin EC] 1 tab PO QDPC Chromium Picolinate 200 mcg PO DAILY Clotrimazole/Betamethasone Dip [Lotrisone Cream] 30 gm TP BID PRN PRN Reason: Rash Home Medications: Ascorbic Acid [Vitamin C] 500 mg PO DAILY 05/31/15 [History] Cholecalciferol (Vitamin D3) [Vitamin D3] 1,000 unit PO DAILY 05/31/15 [History] Gluc HCl/Csa/Collagen/Hyalur A [Glucosamine Chondroitin Cap] 1 each PO DAILY 05/31/15 [History] Magnesium Oxide [Mgo] 400 mg PO DAILY 05/31/15 [History] Multivit-Min/FA/Lycopen/Lutein [Centrum Silver Tablet] 1 each PO DAILY 05/31/15 [History] Orient-3/Dha/Epa/Fish Oil [Fish Oil 1,000 mg Softgel] 1 each PO DAILY 05/31/15 [History] Omeprazole [PriLOSEC] 40 mg PO DAILY 05/31/15 [History] Quinapril HCl [Accupril] 20 mg PO DAILY 05/31/15 [History] Triamterene/Hydrochlorothiazid [Dyazide 37.5-25 Capsule] 1 each PO DAILY 05/31/15 [History] Vitamin E (Dl,Tocopheryl Acet) [Vitamin E] 400 unit PO DAILY 05/31/15 [History] Aspirin [Lo-Dose Aspirin EC] 1 tab PO QDPC 12/04/16 [History] Chromium Picolinate 200 mcg PO DAILY 05/04/19 [History] Clotrimazole/Betamethasone Dip [Lotrisone Cream] 30 gm TP BID PRN 05/04/19 [History] Docusate Sodium [Colace] 100 mg PO BID PRN #30 capsule 05/05/19 [Rx] Ibuprofen 800 mg PO Q8H PRN #30 tablet 05/05/19 [Rx] Ondansetron HCl [Zofran] 4 mg PO Q4HR PRN #30 tab 05/05/19 [Rx] OxyCODONE/APAP 5/325 [Percocet 5/325 MG] 1 each PO Q6HR PRN 7 Days #28 tablet 05/05/19 [Rx] Polyethylene Glycol 3350 [MiraLAX Powder Bulk 17.9 Oz] 1 scoop PO DAILY 30 Days #510 gm 05/05/19 [Rx] Allergies/Adverse Reactions: Allergy/AdvReac Type Severity Reaction Status Date / Time methocarbamol Allergy Rash Verified 05/04/19 13:18 [From Robaxisal] Amoxicillin AdvReac Rash Verified 05/04/19 13:18 aspirin [From Robaxisal] AdvReac Rash Verified 05/04/19 13:18 Date of admission: 05/02/19 06:49 Primary care physician: Jason Good MD Consults: 05/02/19 05:53 Consult to Surgery [CONS] Stat Consulting Provider: [facility] Reason for Consult: sbo, abdominal pain Call Completed: Yes 05/03/19 09:48 Consult to ENT [CONS] Routine Consulting Provider: ENT R[facility] Reason for Consult: oropharyngeal lesion suspicious for Ca Call Completed: Yes Discharging clinician: Alexandra Bowieel - Constitutional Vitals: Temp Pulse Resp BP Pulse Ox 98.3 F 85 15 133/81 96 05/05/19 14:43 05/05/19 14:43 05/05/19 14:43 05/05/19 14:43 05/05/19 14:43 General appearance: Present: A&O X 3 Exam: General: In no acute distress. Respiratory exam: CTAB. no accessory muscle use, rales, rhonchi, wheezes Cardiovascular exam: RRR, +S1, +S2. no murmur, gallop, rubs. GI/Abdominal exam: Non-tender, Non-distended, normal bowel sounds, soft, no peritoneal signs. surgical scar without signs of infection Extremities exam: 1+ pedal edema b/l, pulses palpable in b/l lower extremities. no calf tenderness Neurological exam: CN II-XII intact, AO X3, no focal deficits. Skin exam: No skin rash - Patient Status Disposition: Home, Self-Care Condition: Good - Discharge Instructions Instructions: Bowel Resection (DC) Follow Up With: Yaz Horner CNP [Advanced Practice Nurse] - 05/20/19 2:15 pm Additional Instructions: General Surgical Discharge Instructions 1. No pushing, pulling, or lifting greater than 15 lbs for 4 weeks. 2. You may remove your dressings and shower beginning today, but no tub baths, soaking, or swimming for 2 weeks. 3. No driving for two weeks unless otherwise specified and then you may resume driving when you are off narcotics and are safe to react in a car. 4. Take ibuprofen every 8 hours for discomfort. If this does not relieve discomfort, you may take the as needed Percocet. Eat a small snack with pain medication as this will help reduce the risk of nausea. Take narcotics as directed. Do not take more narcotics then directed and do not share your narcotics with any other person. Do not drink alcohol while on narcotics. You can take the Zofran/ondansetron if needed for nausea or with a dose of narcotics to prevent nausea. 5. Take stool softeners (Colace) or a water based laxative (Miralax) while taking narcotics. You may hold for loose stools. 6. Report any fevers greater than 100.5F, increase abdominal discomfort, drainage that looks like pus, increased redness or pain at the surgical site, or any vomiting. 7. Report any pain in the calves, shortness of breath, or rapid heartbeat. 8. Follow-up in the office as directed. 9. If you were prescribed antibiotics, do not stop them without talking to your provider. - Diet and Activity Activity: increase activity as tolerated
--- NOTE | 2019-05-06 13:10 | Electrocardiograph Report ---
[address] [place], [place] [address] Test Date: 2019-05-02 Pat Name: Apolonia Jdae Department: [id number] Room: 3A35 Gender: F High [employer] Firer: : 1940 Requested By: Josh Hodges Order Number: [id number] Reading MD: Jason Macias Measurements Intervals [place] Rate: 76 P: 57 CA: 154 QRS: -31 QRSD: 102 T: 55 QT: 406 QTc: 457 Interpretive Statements Sinus rhythm Inferior infarct, old Electronically Signed On 05-06-2019 13:09:14 EDT by Jason Macias
== END 2019-05-05 17:08 | disposition home or self-care (01) ==
LOC: 3ANU 04:11 → EMEROOARM 04:11 → SUATTDRO 06:49 → 3ANU 07:36
PROVIDERS: ADMIT Internal Medicine; ATTEND Internal Medicine

== ENCOUNTER 2022-01-31 09:52 | Inpatient (IN) ==
[2022-01-31 12:30] LABS: Basophils % 0.2 %; Eosinophils % 0.1 %; Hematocrit 45.1 % (35.3-44.9); Hemoglobin 15.1 g/dL (11.5-15.4); Immature Granulocytes % 0.4 % (0-4); Lymphocytes # 0.8 K/mcL (0.6-4.6); Lymphocytes % 10.1 %; Mean Corpuscular HGB Conc 33.5 g/dL (31.6-35.5); Mean Corpuscular Hemoglobin 30.3 pg (28.0-33.3); Mean Corpuscular Volume 90.4 fL (83.0-100.0); Mean Platelet Volume 11.2 fL (9.4-12.4); Monocytes # 0.4 K/mcL (0.0-1.3); Monocytes % 4.4 %; Neutrophils # 7.1 K/mcL (1.6-8.9); Platelet Count 164 K/mcL (140-400); Red Blood Count 4.99 M/mcL (3.82-4.97); Segmented Neutrophils % 84.8 %; White Blood Count 8.3 K/mcL (4.3-11.1)
[2022-01-31 15:06] LABS: Bacteria,Urine Few per hpf (None-Few); Bilirubin,Urine Negative (Negative); Blood,Urine Negative (Negative); Clarity,Urine Turbid (Clear); Color,Urine Yellow (Yellow); Glucose,Urine (UA) Normal (Normal); Ketones,Urine Trace mg/dL (Negative); Leukocyte Esterase,Urine Moderate (Negative); Mucus,Urine Few per lpf (None-Few); Nitrite,Urine Negative (Negative); Protein,Urine 30 mg/dL (Neg-Trace); Renal Epithelial Cells,Urine Few per hpf (None-Few); Specific Gravity,Urine 1.025 (1.010-1.025); Squamous Epithelial Cell,Urine Moderate per hpf (None-Few); Transitional Epi Cells,Urine Few per hpf (None-Few); Urobilinogen,Urine Normal (Normal); WBC,Urine 15-30 per hpf (0-3)
[2022-01-31 15:10] LABS: Alanine Aminotransferase 17 Units/L (7-52); Albumin 4.5 g/dL (3.5-5.7); Albumin/Globulin Ratio 1.6 (1.1-2.2); Alkaline Phosphatase 66 Units/L (34-104); Amylase 42 Units/L (29-103); Aspartate Amino Transferase 22 Units/L (13-39); BUN/Creatinine Ratio 25 (6-26); Bilirubin,Direct 0.1 mg/dL (0.0-0.2); Bilirubin,Indirect 0.5 mg/dL (0.0-1.0); Bilirubin,Total 0.6 mg/dL (0.3-1.0); Blood Urea Nitrogen 17 mg/dL (8-23); Calcium 10.7 mg/dL (8.6-10.3); Carbon Dioxide 26 mEq/L (23-29); Chloride 100 mEq/L (98-107); Globulin 2.9 g/dL (2.4-3.5); Glucose 146 mg/dL (70-105); Lipase 20 Units/L (11-82); Osmolality,Calculated 288 (280-300); Potassium 4.1 mEq/L (3.5-5.1); Sodium 137 mEq/L (136-145); Total Protein 7.4 g/dL (6.4-8.9); eGFR For African Americans > 60 (> 60); eGFR For Non-African Americans > 60 (> 60)
[2022-01-31] MEDS ORDERED: *HR* HYDROcodone/Acet 10/325 mg TABLET PO ONE (15:30)
[2022-01-31] MEDS ORDERED: *HR* FentaNYL (PF) 100 MCG/2 ML VIAL IVP ONE (16:19)
[2022-01-31] MEDS ORDERED: 0.9 % Sodium Chloride 1,000 ML IVC ONE (16:19)
[2022-01-31] MEDS ORDERED: Naloxone 0.4 MG/ML INJ IVP PRN (17:11)
[2022-01-31] MEDS ORDERED: Ondansetron 4 MG/2 ML VIAL IVP PRN (17:11)
[2022-01-31] MEDS ORDERED: *HR* Heparin 5,000 UNIT/ML VIAL IVP PRN ×2 (17:14)
[2022-01-31] MEDS ORDERED: Heparin 25,000UNIT/250ML 1/2NS 25,000 UNIT/250 ML IV.SOLN IVC SCH (17:15)
[2022-01-31 18:10] LABS: Heparin anti-factor XA UFH 0.16 IU/mL (0.30-0.70)
[2022-01-31 18:13] LABS: Activated Partial Thrombo Time 39.5 Seconds (26.0-36.0)
[2022-01-31] MEDS: Heparin 25,000UNIT/250ML 1/2NS 25,000 UNIT/250 ML IV.SOLN IVC SCH (19:51)
[2022-01-31] MEDS: 0.9 % Sodium Chloride 1,000 ML IVC SCH (19:51)
[2022-02-01 02:21] LABS: Basophils % 0.1 %; Eosinophils # 0.1 K/mcL (0.0-0.6); Hematocrit 38.7 % (35.3-44.9); Immature Granulocytes % 0.4 % (0-4); Mean Corpuscular HGB Conc 32.8 g/dL (31.6-35.5); Mean Corpuscular Hemoglobin 29.9 pg (28.0-33.3); Mean Corpuscular Volume 91.1 fL (83.0-100.0); Mean Platelet Volume 10.9 fL (9.4-12.4); Monocytes # 0.8 K/mcL (0.0-1.3); Monocytes % 10.6 %; Platelet Count 144 K/mcL (140-400); Red Blood Count 4.25 M/mcL (3.82-4.97); Red Cell Distribution Width 14.2 % (11.5-14.5); Segmented Neutrophils % 62.9 %; White Blood Count 7.9 K/mcL (4.3-11.1)
[2022-02-01 02:24] LABS: Hemoglobin 12.7 g/dL (11.5-15.4)
[2022-02-01 02:27] LABS: INR 1.2; Prothrombin Time 13.2 Seconds (9.4-12.1)
[2022-02-01 02:45] LABS: Alanine Aminotransferase 12 Units/L (7-52); Albumin 3.7 g/dL (3.5-5.7); Albumin/Globulin Ratio 1.6 (1.1-2.2); Alkaline Phosphatase 51 Units/L (34-104); Aspartate Amino Transferase 18 Units/L (13-39); BUN/Creatinine Ratio 28 (6-26); Bilirubin,Total 0.6 mg/dL (0.3-1.0); Blood Urea Nitrogen 18 mg/dL (8-23); Calcium 9.2 mg/dL (8.6-10.3); Carbon Dioxide 24 mEq/L (23-29); Chloride 104 mEq/L (98-107); Globulin 2.3 g/dL (2.4-3.5); Glucose 121 mg/dL (70-105); Magnesium 1.8 mg/dL (1.6-2.6); Osmolality,Calculated 289 (280-300); Phosphorous 3.2 mg/dL (2.7-4.5); Potassium 3.5 mEq/L (3.5-5.1); Sodium 138 mEq/L (136-145); eGFR For African Americans > 60 (> 60); eGFR For Non-African Americans > 60 (> 60)
[2022-02-01] MEDS: Pantoprazole 40 MG VIAL IVP SCH ×2 (09:12)
[2022-02-01] MEDS ORDERED: *HR* Propofol 200 MG/20 ML VIAL IVP ONE (12:10)
[2022-02-01] MEDS ORDERED: *HR* FentaNYL (PF) 100 MCG/2 ML VIAL ONE (12:10)
[2022-02-01] MEDS ORDERED: *HR* Rocuronium Bromide 50 MG/5 ML VIAL ONE (12:11)
[2022-02-01] MEDS ORDERED: Lidocaine HCL 4 ML Topical Solution (Laryng-O-Jet Kit Sterile Pak) TP ONE (12:11)
[2022-02-01] MEDS ORDERED: *HR* Succinylcholine 200 MG/10 ML VIAL IVP ONE (12:11)
[2022-02-01] MEDS ORDERED: Ondansetron 4 MG/2 ML VIAL ONE (12:11)
[2022-02-01] MEDS ORDERED: Lidocaine -MPF 2% 2 ML VIAL ONE (12:11)
[2022-02-01] MEDS ORDERED: Multivit/Ca/Min/Fe/FA 1 TAB TABLET PO SCH (12:30)
[2022-02-01] MEDS ORDERED: Clindamycin 900 MG/50 ML 900 MG/50 ML IV.SOLN IVPB ONE ×2 (15:05→15:18)
[2022-02-01] MEDS ORDERED: EPHEDrine 50 MG/ML VIAL ONE (15:25)
[2022-02-01] MEDS ORDERED: Sugammadex Sodium 200 MG/2 ML VIAL IV ONE (16:01)
[2022-02-01] MEDS: *HR* HYDROmorphone PF 0.5 MG/0.5 ML SYRINGE IVP PRN ×2 (17:07→17:20)
[2022-02-01] MEDS ORDERED: Naloxone 0.4 MG/ML INJ IVP PRN (17:56)
[2022-02-01] MEDS ORDERED: Ondansetron 4 MG/2 ML VIAL IVP PRN (17:56)
[2022-02-01] MEDS: 0.9 % Sodium Chloride 1,000 ML IVC SCH (18:24)
[2022-02-01] MEDS: Heparin 25,000UNIT/250ML 1/2NS 25,000 UNIT/250 ML IV.SOLN IVC SCH (18:25)
[2022-02-02 02:49] LABS: BUN/Creatinine Ratio 25 (6-26); Blood Urea Nitrogen 20 mg/dL (8-23); Calcium 8.7 mg/dL (8.6-10.3); Carbon Dioxide 18 mEq/L (23-29); Chloride 105 mEq/L (98-107); Glucose 127 mg/dL (70-105); Magnesium 1.7 mg/dL (1.6-2.6); Osmolality,Calculated 288 (280-300); Phosphorous 3.8 mg/dL (2.7-4.5); Potassium 4.1 mEq/L (3.5-5.1); Sodium 137 mEq/L (136-145); eGFR For African Americans > 60 (> 60); eGFR For Non-African Americans > 60 (> 60)
[2022-02-02] MEDS ORDERED: Chloraseptic Spray 177 ML BOTTLE MM PRN (05:58)
[2022-02-02] MEDS: Apixaban 5 MG TABLET PO SCH ×2 (08:04→20:17)
[2022-02-02] MEDS: Ascorbic Acid 500 MG TABLET PO SCH (08:04)
[2022-02-02] MEDS: Vitamin E 200 UNIT (90MG) CAPSULE PO SCH (08:04)
[2022-02-02] MEDS: Pantoprazole 40 MG VIAL IVP SCH (08:05)
[2022-02-02] MEDS ORDERED: Morphine Sulfate 2 MG/ML SYRINGE IVP ONE (08:17)
[2022-02-02] MEDS ORDERED: Ascorbic Acid 500 MG TABLET PO SCH (09:00)
[2022-02-02] MEDS ORDERED: Vitamin E 200 UNIT (90MG) CAPSULE PO SCH (09:00)
[2022-02-02] MEDS ORDERED: Cholecalciferol (D-3) 1,000 UNIT (25MCG) TABLET PO SCH (09:00)
[2022-02-02] MEDS ORDERED: lisinopriL 20 MG TABLET PO SCH ×2 (09:00)
[2022-02-02 11:10] LABS: Basophils % 0.1 %; Eosinophils # 0.1 K/mcL (0.0-0.6); Eosinophils % 0.5 %; Hematocrit 39.5 % (35.3-44.9); Hemoglobin 12.7 g/dL (11.5-15.4); Immature Granulocytes % 0.5 % (0-4); Lymphocytes # 1.9 K/mcL (0.6-4.6); Lymphocytes % 18.1 %; Mean Corpuscular HGB Conc 32.2 g/dL (31.6-35.5); Mean Corpuscular Hemoglobin 30.2 pg (28.0-33.3); Mean Corpuscular Volume 93.8 fL (83.0-100.0); Monocytes # 1.2 K/mcL (0.0-1.3); Monocytes % 11.5 %; Neutrophils # 7.1 K/mcL (1.6-8.9); Platelet Count 132 K/mcL (140-400); Red Blood Count 4.21 M/mcL (3.82-4.97); Red Cell Distribution Width 14.3 % (11.5-14.5); Segmented Neutrophils % 69.3 %; White Blood Count 10.3 K/mcL (4.3-11.1)
[2022-02-02] MEDS: *HR* OxyCODONE/APAP 7.5/325 TABLET PO PRN ×2 (15:32→21:45)
[2022-02-03] MEDS: *HR* OxyCODONE/APAP 7.5/325 TABLET PO PRN (05:12)
[2022-02-03 05:35] LABS: Basophils % 0.1 %; Eosinophils # 0.1 K/mcL (0.0-0.6); Eosinophils % 1.5 %; Hemoglobin 11.7 g/dL (11.5-15.4); Immature Granulocytes % 0.5 % (0-4); Lymphocytes # 1.8 K/mcL (0.6-4.6); Lymphocytes % 21.8 %; Mean Corpuscular HGB Conc 31.6 g/dL (31.6-35.5); Mean Corpuscular Hemoglobin 29.5 pg (28.0-33.3); Mean Corpuscular Volume 93.4 fL (83.0-100.0); Mean Platelet Volume 11.4 fL (9.4-12.4); Monocytes % 11.6 %; Neutrophils # 5.3 K/mcL (1.6-8.9); Platelet Count 104 K/mcL (140-400); Red Blood Count 3.96 M/mcL (3.82-4.97); Red Cell Distribution Width 14.2 % (11.5-14.5); Segmented Neutrophils % 64.5 %; White Blood Count 8.2 K/mcL (4.3-11.1)
[2022-02-03 05:36] LABS: BUN/Creatinine Ratio 24 (6-26); Blood Urea Nitrogen 17 mg/dL (8-23); Calcium 8.7 mg/dL (8.6-10.3); Carbon Dioxide 27 mEq/L (23-29); Chloride 100 mEq/L (98-107); Glucose 124 mg/dL (70-105); Magnesium 1.6 mg/dL (1.6-2.6); Osmolality,Calculated 283 (280-300); Potassium 4.1 mEq/L (3.5-5.1); Sodium 135 mEq/L (136-145); eGFR For African Americans > 60 (> 60); eGFR For Non-African Americans > 60 (> 60)
[2022-02-03] MEDS: Vitamin E 200 UNIT (90MG) CAPSULE PO SCH (07:24)
[2022-02-03] MEDS: Ascorbic Acid 500 MG TABLET PO SCH (07:24)
[2022-02-03] MEDS: Pantoprazole 40 MG VIAL IVP SCH (07:25)
[2022-02-03] MEDS: Apixaban 5 MG TABLET PO SCH ×2 (07:25→19:40)
[2022-02-03] MEDS ORDERED: Multivit/Ca/Min/Fe/FA 1 TAB TABLET PO SCH (09:00)
[2022-02-03] MEDS: polyethylene glycoL 3350 17 GM POWD.PACK PO SCH (10:30)
[2022-02-04] MEDS: *HR* OxyCODONE/APAP 7.5/325 TABLET PO PRN (03:05)
[2022-02-04 04:47] LABS: Basophils % 0.2 %; Eosinophils # 0.2 K/mcL (0.0-0.6); Eosinophils % 2.1 %; Hematocrit 37.7 % (35.3-44.9); Hemoglobin 12.1 g/dL (11.5-15.4); Immature Granulocytes % 0.6 % (0-4); Immature Platelets 5.7 % (1.1-6.1); Lymphocytes # 2.3 K/mcL (0.6-4.6); Lymphocytes % 28.3 %; Mean Corpuscular HGB Conc 32.1 g/dL (31.6-35.5); Mean Corpuscular Hemoglobin 29.8 pg (28.0-33.3); Mean Corpuscular Volume 92.9 fL (83.0-100.0); Mean Platelet Volume 11.5 fL (9.4-12.4); Monocytes # 0.8 K/mcL (0.0-1.3); Neutrophils # 4.7 K/mcL (1.6-8.9); Platelet Count 130 K/mcL (140-400); Red Blood Count 4.06 M/mcL (3.82-4.97); Red Cell Distribution Width 13.8 % (11.5-14.5); Segmented Neutrophils % 58.8 %; White Blood Count 8.1 K/mcL (4.3-11.1)
[2022-02-04 05:00] LABS: Alanine Aminotransferase 17 Units/L (7-52); Albumin 3.6 g/dL (3.5-5.7); Albumin/Globulin Ratio 1.4 (1.1-2.2); Alkaline Phosphatase 48 Units/L (34-104); Aspartate Amino Transferase 27 Units/L (13-39); BUN/Creatinine Ratio 24 (6-26); Bilirubin,Direct 0.1 mg/dL (0.0-0.2); Bilirubin,Indirect 0.5 mg/dL (0.0-1.0); Bilirubin,Total 0.6 mg/dL (0.3-1.0); Blood Urea Nitrogen 18 mg/dL (8-23); Carbon Dioxide 27 mEq/L (23-29); Chloride 100 mEq/L (98-107); Globulin 2.5 g/dL (2.4-3.5); Glucose 150 mg/dL (70-105); Magnesium 1.7 mg/dL (1.6-2.6); Osmolality,Calculated 285 (280-300); Potassium 3.8 mEq/L (3.5-5.1); Sodium 135 mEq/L (136-145); Total Protein 6.1 g/dL (6.4-8.9); eGFR For African Americans > 60 (> 60); eGFR For Non-African Americans > 60 (> 60)
[2022-02-04 06:18] VITALS: BP 122/75; PULSE 71; TEMP 97.8; O2SAT 96
[2022-02-04] MEDS: Vitamin E 200 UNIT (90MG) CAPSULE PO SCH (08:31)
[2022-02-04] MEDS: Ascorbic Acid 500 MG TABLET PO SCH (08:31)
[2022-02-04] MEDS: Apixaban 5 MG TABLET PO SCH (08:32)
[2022-02-04] MEDS: polyethylene glycoL 3350 17 GM POWD.PACK PO SCH (08:33)
[2022-02-04] MEDS ORDERED: lisinopriL 10 MG TABLET PO SCH (09:00)
== END 2022-02-04 11:12 | DRG 336 ==
LOC: 3BNU 09:52 → EMEROOARM 09:52 → SUATTDRO 16:36 → 3BNU 18:26
PROVIDERS: ADMIT Family Medicine; ATTEND Pharmacist